=== PATIENT | female | born 1965 | race American Indian/Alaskan Native ===

== ENCOUNTER 2016-05-24 02:13 | Emergency (ER) | payer BC ==
[2016-05-24] MEDS ORDERED: BABY ASPIRIN PO ONE (02:50)
[2016-05-24 03:11] LABS: Basophils % (Auto) 1.2 % (0.0-1.8); Eosinophils % (Auto) 1.8 % (0.0-4.3); Hematocrit 37.1 % (30.3-42.9); Hemoglobin 11.9 gm/dl (10.1-14.3); Mean Corpuscular HGB Conc 32 % (30-34); Mean Corpuscular Volume 78 fl (79-97); Platelet Count 275 K/mm3 (140-440); Red Blood Count 4.76 M/mm3 (3.65-5.03); White Blood Count 6.2 K/mm3 (4.5-11.0)
[2016-05-24 03:27] LABS: Mean Corpuscular Hemoglobin 25 pg (28-32)
[2016-05-24 03:33] LABS: Anion Gap 15 mmol/L; BUN/Creatinine Ratio 14.44; Blood Urea Nitrogen 13 mg/dL (7-17); Calcium 8.9 mg/dL (8.4-10.2); Carbon Dioxide 27 mmol/L (22-30); Chloride 100.6 mmol/L (98-107); Glucose 90 mg/dL (65-100); Potassium 3.6 mmol/L (3.6-5.0); Sodium 139 mmol/L (137-145)
[2016-05-24] MEDS ORDERED: NORVASC PO ONE (06:15)
[2016-05-24] MEDS ORDERED: ZESTRIL PO ONE (06:15)
[2016-05-24] MEDS ORDERED: MOTRIN PO ONE (06:16)
--- NOTE | 2016-05-24 06:20 | Emergency Department Report ---
ED Chest Pain HPI - General Chief Complaint: Chest Pain Stated Complaint: CHEST PAIN Time Seen by Provider: 05/24/16 06:10 Source: patient Mode of arrival: Ambulatory Limitations: No Limitations - History of Present Illness Initial Comments: 50-year-old female presents to the emergency department complaining of chest pain. Patient reports the acute onset of sharp, midsternal chest pain at approximately 1:15 this morning. Pain does not radiate. She reports pain began when she lay down in bed. Initially she reported difficulty breathing mild nausea. These associated symptoms have resolved. Her pain has been constant since onset. Pain is worse with lying flat or movement. Patient also states that she ran out of her blood pressure medication yesterday. There are no other complaints. MD Complaint: chest pain -: Sudden, During the night Time: 01:15 Onset: during rest Pain Location: substernal Pain Radiation: none Severity: severe Severity scale (0 -10): 10 Quality: sharp Consistency: constant Improves With: nothing Worsens With: supine, palpation, movement re: nausea, dyspnea. denies: vomting, diaphoresis Treatments Prior to Arrival: none Aspirin use within the Past 7 Days: (0) No - Related Data Previous Rx's Medication Instructions Recorded Last Taken Type Ibuprofen [Motrin] 800 mg PO Q8HR PRN #20 tablet 05/24/16 Unknown Rx Lisinopril [Zestril TAB] 5 mg PO QDAY #30 tablet 05/24/16 Unknown Rx amLODIPine [Norvasc] 1 tab PO DAILY #30 tablet 05/24/16 Unknown Rx Allergies Allergy/AdvReac Type Severity Reaction Status Date / Time amoxicillin Allergy Hives Verified 05/24/16 02:47 STARR score - Starr Score Age > 65: (0) No Aspirin use within the Past 7 Days: (0) No 3 or more CAD Risk Factors: (1) Yes 2 or more Angina events in past 24 hrs: (0) No Known CAD with more than 50% Stenosis: (0) No Elevated Cardiac Markers: (0) No ST Deviation Greater than 0.5mm: (0) No STARR Score: 1 ED Review of Systems ROS: Stated complaint: CHEST PAIN Other details as noted in HPI Comment: All other systems reviewed and negative Respiratory: shortness of breath Cardiovascular: chest pain Gastrointestinal: nausea ED Past Medical Hx - Past Medical History Previous Medical History?: Yes Hx Hypertension: Yes Additional medical history: Morbid Obesity, Genital Herpes - Surgical History Past Surgical History?: Yes Additional Surgical History: - Family History Family history: no significant - Social History Smoking Status: Current Every Day Smoker - Medications Home Medications: Home Medications Medication Instructions Recorded Confirmed Last Taken Type Ibuprofen [Motrin] 800 mg PO Q8HR PRN #20 tablet 05/24/16 Unknown Rx Lisinopril [Zestril TAB] 5 mg PO QDAY #30 tablet 05/24/16 Unknown Rx amLODIPine [Norvasc] 1 tab PO DAILY #30 tablet 05/24/16 Unknown Rx ED Physical Exam - General Limitations: No Limitations General appearance: alert, in no apparent distress - Head Head exam: Present: atraumatic, normocephalic - Eye Eye exam: Present: normal appearance, PERRL, EOMI - ENT ENT exam: Present: normal exam, normal orophraynx, mucous membranes moist - Neck Neck exam: Present: normal inspection, full ROM. Absent: tenderness - Respiratory Respiratory exam: Present: normal lung sounds bilaterally, chest wall tenderness (exquisite tenderness to palpation of the anterior chest wall to the right of the sternum. No deformity or crepitus noted.). Absent: respiratory distress - Cardiovascular Cardiovascular Exam: Present: regular rate, normal rhythm, normal heart sounds - GI/Abdominal GI/Abdominal exam: Present: soft, normal bowel sounds. Absent: distended, tenderness - Extremities Exam Extremities exam: Present: normal inspection, full ROM. Absent: tenderness - Back Exam Back exam: Present: normal inspection, full ROM. Absent: tenderness - Neurological Exam Neurological exam: Present: alert, oriented X3. Absent: motor sensory deficit - Skin Skin exam: Present: warm, dry, intact ED Course Vital Signs 05/24/16 05/24/16 05/24/16 02:38 04:48 04:50 Temperature 98 F Pulse Rate 81 66 69 Respiratory 16 14 20 Rate Blood Pressure 214/103 142/76 Blood Pressure 214/103 [Left] O2 Sat by Pulse 99 98 Oximetry 05/24/16 05/24/16 05/24/16 04:54 04:55 04:56 Temperature Pulse Rate 69 73 Respiratory 20 13 Rate Blood Pressure 142/76 Blood Pressure [Left] O2 Sat by Pulse 100 97 Oximetry 05/24/16 05/24/16 05/24/16 05:00 05:06 05:10 Temperature Pulse Rate 65 64 64 Respiratory 15 16 16 Rate Blood Pressure 153/79 153/79 153/79 Blood Pressure [Left] O2 Sat by Pulse 99 99 99 Oximetry 05/24/16 05/24/16 05/24/16 05:15 05:20 05:26 Temperature Pulse Rate 68 66 67 Respiratory 13 14 19 Rate Blood Pressure 153/87 153/87 153/87 Blood Pressure [Left] O2 Sat by Pulse 96 99 97 Oximetry 05/24/16 05/24/16 05/24/16 05:30 05:36 05:40 Temperature Pulse Rate 80 71 65 Respiratory 16 16 16 Rate Blood Pressure 164/90 164/90 164/90 Blood Pressure [Left] O2 Sat by Pulse 97 98 99 Oximetry 05/24/16 05/24/16 05/24/16 05:45 05:50 06:30 Temperature Pulse Rate 70 68 70 Respiratory 15 15 Rate Blood Pressure 160/77 160/77 118/62 Blood Pressure [Left] O2 Sat by Pulse 96 97 Oximetry ED Medical Decision Making - Lab Data Result diagrams: 05/24/16 02:59 05/24/16 02:59 - EKG Data -: EKG Interpreted by Ct EKG shows normal: sinus rhythm, axis, intervals, QRS complexes Rate: normal - EKG Data When compared to previous EKG there are: previous EKG unavailable Interpretation: nonspecific ST-T wave vik - Medical Decision Making Lab results reviewed and discussed with the patient. Patient's blood pressure has partially improved with medication. She also reports her pain is improved with medication. Patient will be discharged home at this time to follow up with her primary care physician. Patient will be provided prescriptions for her antihypertension medication. - Differential Diagnosis chest wall pain, atypical chest pain, hypertension Critical care attestation.: If time is entered above; I have spent that time in minutes in the direct care of this critically ill patient, excluding procedure time. ED Disposition Clinical Impression: Chest wall pain Hypertension Qualifiers: Hypertension type: essential hypertension Qualified Code(s): I10 - Essential ( primary) hypertension Disposition: DISCHARGED TO HOME OR SELFCARE Is pt being admited?: No Condition: Stable Instructions: Chest Pain (ED), Hypertension (ED) Prescriptions: amLODIPine [Norvasc] 1 tab PO DAILY #30 tablet Ibuprofen [Motrin] 800 mg PO Q8HR PRN #20 tablet PRN Reason: Pain Lisinopril [Zestril TAB] 5 mg PO QDAY #30 tablet Referrals: PRIMARY CARE, [Primary Care Provider] - 3-5 Days Time of Disposition: 07:17
[2016-05-24 07:19] VITALS: BP 142/76
== END 2016-05-24 07:22 | disposition home or self-care (01) ==
LOC: ED 02:13
DX: R07.89 Other chest pain (principal); I10 Essential (primary) hypertension; F17.200 Nicotine dependence, unspecified, uncomplicated
CPT/HCPCS: 36415; 80048; 84484; 85025; 93005; 93010; 99284

== ENCOUNTER 2017-03-24 14:56 | Emergency (ER) | payer BC ==
--- NOTE | 2017-03-24 19:20 | Emergency Department Report ---
Minor Respiratory - HPI Chief Complaint: Upper Respiratory Infection Stated Complaint: COLD SYMPTOMS/COUGH Time Seen by Provider: 03/24/17 19:17 ED Review of Systems ROS: Stated complaint: COLD SYMPTOMS/COUGH Other details as noted in HPI ED Past Medical Hx - Past Medical History Hx Hypertension: Yes Additional medical history: Morbid Obesity, Genital Herpes - Surgical History Additional Surgical History: - Social History Smoking Status: Current Every Day Smoker - Medications Home Medications: Home Medications Medication Instructions Recorded Confirmed Last Taken Type Ibuprofen [Motrin] 800 mg PO Q8HR PRN #20 tablet 05/24/16 Unknown Rx Lisinopril [Zestril TAB] 5 mg PO QDAY #30 tablet 05/24/16 Unknown Rx amLODIPine [Norvasc] 1 tab PO DAILY #30 tablet 05/24/16 Unknown Rx Minor Respiratory Exam - Exam General: Vital signs noted. No distress. Alert and acting appropriately. Neurologic: Alert and oriented, no deficits. Musculoskeletal: Unremarkable. ED Course Vital Signs 03/24/17 15:16 Temperature 98.9 F Pulse Rate 96 H Respiratory 18 Rate Blood Pressure 155/85 O2 Sat by Pulse 95 Oximetry Critical care attestation.: If time is entered above; I have spent that time in minutes in the direct care of this critically ill patient, excluding procedure time. ED Disposition Condition: Stable Referrals: PRIMARY CARE, [Primary Care Provider] - 3-5 Days
[2017-03-24] MEDS ORDERED: DELTASONE PO ONE (19:29)
[2017-03-24] MEDS ORDERED: DUONEB *Not for PRN Use IH ONE (19:29)
--- NOTE | 2017-03-24 21:29 | XRay Report ---
FINAL REPORT EXAM: XR CHEST ROUTINE 2V HISTORY: cough and wheezing TECHNIQUE: Two views of the chest Comparison: None FINDINGS: Normal heart size. There are mild hypoventilatory changes in both bases. On the lateral projection, there is ill-defined density projecting over the lower lobes which is not appreciated on the PA projection. This may be due to summation artifact or an infiltrate lower than visualized on the frontal film. IMPRESSION: Mild hypoventilatory changes. Ill-defined opacity projects over the lower lobe on the lateral projection which may be partly due to patient body habitus and summation artifact. No effusion.
[2017-03-24 23:50] LABS: Hematocrit 38.8 % (30.3-42.9); Hemoglobin 12.4 gm/dl (10.1-14.3); Mean Corpuscular HGB Conc 32 % (30-34); Mean Corpuscular Volume 79 fl (79-97); Platelet Count 286 K/mm3 (140-440); Red Blood Count 4.92 M/mm3 (3.65-5.03); Red Cell Distribution Width 14.4 % (13.2-15.2)
[2017-03-24 23:51] LABS: Mean Corpuscular Hemoglobin 25 pg (28-32)
[2017-03-25 00:08] LABS: BUN/Creatinine Ratio 10; Blood Urea Nitrogen 9 mg/dL (7-17); Hemolysis Index 5
[2017-03-25] MEDS ORDERED: LEVAQUIN PO ONE (00:40)
[2017-03-25 00:55] LABS: Basophils % (Manual) 0 % (0.0-1.8); Eosinophils % (Manual) 0 % (0.0-4.3); Hypochromasia 1+; Platelet Estimate Consistent w Auto; Total Cells Counted 100
--- NOTE | 2017-03-25 01:18 | Emergency Department Report ---
HPI - General Chief Complaint: Upper Respiratory Infection Time Seen by Provider: 03/24/17 19:17 - HPI HPI: Patient airport cough, cold and congestion since Saturday. She says she is having coughing of yellow phlegm. Denies any fever, nausea or vomiting. Denies any shortness of breath or chest pain. Report nasal congestion and runny nose. Denies any abdominal or back pain. Denies any urinary burning frequency or urgency. She says she is able to tolerate fluid but not as much as she used to. Denies any vomiting or diarrhea. Patient has a history of high blood pressure, genital herpes and morbid obesity. Denies any coughing of blood. She says she's been taking [id number] medication without any relief. ED Past Medical Hx - Past Medical History Previous Medical History?: Yes Hx Hypertension: Yes Additional medical history: Morbid Obesity, Genital Herpes - Surgical History Past Surgical History?: Yes Additional Surgical History: - Family History Family history: hypertension - Social History Smoking Status: Current Every Day Smoker Substance Use Type: None - Medications Home Medications: Home Medications Medication Instructions Recorded Confirmed Last Taken Type Ibuprofen [Motrin] 800 mg PO Q8HR PRN #20 tablet 05/24/16 Unknown Rx Lisinopril [Zestril TAB] 5 mg PO QDAY #30 tablet 05/24/16 Unknown Rx amLODIPine [Norvasc] 1 tab PO DAILY #30 tablet 05/24/16 Unknown Rx ALBUTEROL Inhaler [ProAir HFA 2 puff IH QID PRN #1 inhalation 03/25/17 Unknown Rx Inhaler] Cetirizine HCl [ZyrTEC] 10 mg PO QDAY #10 capsule 03/25/17 Unknown Rx Fluticasone [Flonase] 1 spray NS QDAY 10 Days #1 bottle 03/25/17 Unknown Rx Ibuprofen [Motrin] 600 mg PO Q6H PRN #12 tablet 03/25/17 Unknown Rx Levofloxacin [Levaquin] 750 mg PO QDAY 9 Days #9 tablet 03/25/17 Unknown Rx ED Review of Systems ROS: Stated complaint: COLD SYMPTOMS/COUGH Other details as noted in HPI Comment: All other systems reviewed and negative Constitutional: weakness. denies: chills, fever Eyes: denies: eye pain, eye discharge ENT: congestion. denies: ear pain, throat pain, dental pain, hearing loss, epistaxis Respiratory: cough. denies: orthopnea, shortness of breath, SOB with exertion, SOB at rest, stridor, wheezing Cardiovascular: denies: chest pain, palpitations, dyspnea on exertion, edema, syncope, paroxysmal nocturnal dyspnea Gastrointestinal: denies: abdominal pain, nausea, vomiting, diarrhea, constipation, hematemesis, melena, hematochezia Genitourinary: denies: urgency, dysuria, frequency, hematuria, discharge Musculoskeletal: denies: back pain, joint swelling, arthralgia, myalgia Skin: denies: rash Neurological: denies: headache, weakness, numbness, paresthesias, confusion, abnormal gait, vertigo Physical Exam - Physical Exam Vital Signs: Vital Signs 03/24/17 15:16 Temperature 98.9 F Pulse Rate 96 H Respiratory 18 Rate Blood Pressure 155/85 O2 Sat by Pulse 95 Oximetry Vital Signs 03/24/17 03/25/17 15:16 01:21 Temperature 98.9 F 99.5 F Pulse Rate 96 H 89 Respiratory 18 16 Rate Blood Pressure 155/85 Blood Pressure 162/84 [Left] O2 Sat by Pulse 95 96 Oximetry General: This is a 51-year-old female well-nourished well-developed in no acute distress and nontoxic in appearance Physical Exam: Head: Normocephalic, atraumatic, no abrasion, no bruising and no contusion. Eyes: Biateral pupils equal and reactive to light, bilateral EOM intact.. Bilateral conjunctival and sclera without injection, normal accommodation. No nystagmus Mouth: Moist, no pharyngeal exudate or erythema. No peritonsillar abscesses. Uvula is midline and oral airways patent. Ears: TM congested without erythema. Bilateral EAC without any redness swelling or drainage. No mastoid bone tenderness Nose: Bilateral nasal turbinates congested with erythema and clear drainage. Maxillary and frontal sinuses non-tender to palpate. Neck: Supple, No Cervical adenopathy, full range of motion and no C-spine tenderness. No swelling or tracheal deviation normal reflexes Cardiovascular: S1, S2. Regular rate and rhythm. No murmur. Capillary refill is less then 3 seconds. Lungs: No rhonchi, or rales. Scant wheeze Upper lung crawford .No chest wall tenderness. No chest contusion. No bruising to chest. No use of accessory muscles. Dry cough MSK: Strength 5/5 in all extremities. No joint deformity or crepitus. Normal inspection. Full range of motion to all extremities. No laceration, abrasion or ecchymotic area noted. Ambulates without any difficulties Abdomen: N bilateral on-tender to palpate in all quadrants, no guarding or rebound tenderness, positive bowel sounds in all quadrants. No CVA tenderness. No hernia, bruit or mass. No rigidity or distention. Extremities: No clubbing, cyanosis or edema. +2 pulses. No neurovascular compromise Skin: Clean, dry and intact. No rash or lesions. Psych: Normal mood and behavior ED Course Vital Signs 03/24/17 15:16 Temperature 98.9 F Pulse Rate 96 H Respiratory 18 Rate Blood Pressure 155/85 O2 Sat by Pulse 95 Oximetry Vital Signs 03/24/17 03/25/17 15:16 01:21 Temperature 98.9 F 99.5 F Pulse Rate 96 H 89 Respiratory 18 16 Rate Blood Pressure 155/85 Blood Pressure 162/84 [Left] O2 Sat by Pulse 95 96 Oximetry - Reevaluation(s) Reevaluation #1: 03/25/17 01:18 Patient received DuoNeb 1 treatment in emergency room. She also receive Deltasone 60 mg by mouth, Upon reevaluation her lung sounds are clear. ED Medical Decision Making - Lab Data Result diagrams: 03/24/17 23:37 03/24/17 23:37 Lab Results 03/24/17 03/24/17 Range/Units 23:37 23:37 WBC 7.4 (4.5-11.0) K/mm3 RBC 4.92 (3.65-5.03) M/mm3 Hgb 12.4 (10.1-14.3) gm/dl Hct 38.8 (30.3-42.9) % MCV 79 (79-97) fl MCH 25 L (28-32) pg MCHC 32 (30-34) % RDW 14.4 (13.2-15.2) % Plt Count 286 (140-440) K/mm3 Add Manual Diff Complete Total Counted 100 Seg Neutrophils % Custom Miller Seg Neuts % (Manual) 95.0 H (40.0-70.0) % Band Neutrophils % 0 % Lymphocytes % (Manual) 3.0 L (13.4-35.0) % Reactive Lymphs % (Man) 0 % Monocytes % (Manual) 2.0 (0.0-7.3) % Eosinophils % (Manual) 0 (0.0-4.3) % Basophils % (Manual) 0 (0.0-1.8) % Metamyelocytes % 0 % Myelocytes % 0 % Promyelocytes % 0 % Blast Cells % 0 % Nucleated RBC % Not Reportable Seg Neutrophils # Man 7.0 (1.8-7.7) K/mm3 Band Neutrophils # 0.0 K/mm3 Lymphocytes # (Manual) 0.2 L (1.2-5.4) K/mm3 Abs React Lymphs (Man) 0.0 K/mm3 Monocytes # (Manual) 0.1 (0.0-0.8) K/mm3 Eosinophils # (Manual) 0.0 (0.0-0.4) K/mm3 Basophils # (Manual) 0.0 (0.0-0.1) K/mm3 Metamyelocytes # 0.0 K/mm3 Myelocytes # 0.0 K/mm3 Promyelocytes # 0.0 K/mm3 Blast Cells # 0.0 K/mm3 WBC Morphology Not Reportable Hypersegmented Neuts Not Reportable Hyposegmented Neuts Not Reportable Hypogranular Neuts Not Reportable Smudge Cells Not Reportable Toxic Granulation Not Reportable Toxic Vacuolation Not Reportable Dohle Bodies Not Reportable Pelger-Huet Anomaly Not Reportable [place] Rods Not Reportable Platelet Estimate Consistent w auto Clumped Platelets Not Reportable Plt Clumps, EDTA Not Reportable Large Platelets Not Reportable Giant Platelets Not Reportable Platelet Satelliting Not Reportable Plt Morphology Comment Not Reportable RBC Morphology Not Reportable Dimorphic RBCs Not Reportable Polychromasia Not Reportable Hypochromasia 1+ Poikilocytosis Not Reportable Anisocytosis Not Reportable Microcytosis Not Reportable Macrocytosis Not Reportable Spherocytes Not Reportable Pappenheimer Bodies Not Reportable Sickle Cells Not Reportable Target Cells Not Reportable Tear Drop Cells Not Reportable Ovalocytes Not Reportable Helmet Cells Not Reportable [place] Bodies Not Reportable [place] Rings Not Reportable [place] Cells Not Reportable Bite Cells Not Reportable Crenated Cell Not Reportable Elliptocytes Not Reportable Acanthocytes (Spur) Not Reportable Rouleaux Not Reportable Hemoglobin C Crystals Not Reportable Schistocytes Not Reportable Malaria parasites Not Reportable [place] Bodies Not Reportable Hem Pathologist Commnt No Sodium 138 (137-145) mmol/L Potassium 3.8 (3.6-5.0) mmol/L Chloride 97.2 L (98-107) mmol/L Carbon Dioxide 25 (22-30) mmol/L Anion Gap 20 mmol/L BUN 9 (7-17) mg/dL Creatinine 0.9 (0.7-1.2) mg/dL Estimated GFR > 60 ml/min BUN/Creatinine Ratio 10 % Glucose 155 H (65-100) mg/dL Calcium 9.0 (8.4-10.2) mg/dL Blood culture pending - Radiology Data Radiology results: report reviewed Chest x-ray reveals patient with mild hypoventilatory changes in both bases. Ill-defined opacity projects over the lower lobe on the lateral projection which may be partly due to patient body habitus and summation of artifact. No effusion. Radiology report suggested that lower lobe on PA may be due to summation of artifact or an infiltrate lower then visualized on the frontal family - Medical Decision Making I spoke with attending physician in emergency room regarding patient's presentation, laboratory and x-ray findings and it was agreed on that patient can be discharged home on Levaquin to get her first dose here with close follow- up. ED course: Patient here with cough and congestion mostly in her lungs and some nasal congestion and runny nose that been going on for over 3 days. Patient's vital signs stable except she had oxygen level at 95%. She did not have any chest pain or shortness of breath. She has dry cough. Patient found to have upper respiratory infection with cough and congestion and also chest x-ray read the patient's with probability of infiltrate in the lower lobe of the lung with mild high pole ventilatory changes and also suggest that infiltrate is probably lower than visualized on the frontal family. They could not rule out pneumonia. Based on patient's symptoms, low oxygenation of 95% on room air and low grade fever patient will be treated for community-acquired pneumonia. Patient updated on all her lab results and x-ray findings. CBC with normal white count and no significant abnormalities, BMP stable. Blood cultures are pending. Patient received DuoNeb 1 treatments her vital signs are stable and pulse ox is 96% with low-grade fever of 99.5. Patient stated that she feel better and she was orally hydrated in emergency room. She was given Motrin prior to discharge along with Levaquin by mouth to cover pneumonia and low- grade fever. Patient does have access to primary care doctor I told her to call tomorrow to schedule appointment for follow-up visit in 2 days and if she feels worse before she sees her primary care to return to the emergency room. She was undescended diagnosis, treatment plan and need for follow-up. Patient discharged home a prescription for albuterol inhaler, Motrin to cover fever and Levaquin to cover pneumonia. Critical care attestation.: If time is entered above; I have spent that time in minutes in the direct care of this critically ill patient, excluding procedure time. ED Disposition Clinical Impression: Upper respiratory infection with cough and congestion Community acquired pneumonia Qualifiers: Laterality: right Lung location: lower lobe of lung Qualified Code(s): J18.1 - Lobar pneumonia, unspecified organism Disposition: TO HOME OR SELFCARE Is pt being admited?: No Does the pt Need Aspirin: No Condition: Stable Instructions: Community-acquired Pneumonia (ED), Upper Respiratory Infection ( ED), Acute Cough (ED) Additional Instructions: Please follow up with your primary care physician in 2 days Please state medication as prescribed he received her first dose of Levaquin in the emergency room tonight and will be prescribed Levaquin for 9 days. Increaseyour fluid intake today 3 L of water, Gatorade and/or orange juice. Rest for 72 hours Takes Zyrtec and Flonase Please take Motrin every 4-6 hours for the next 48 hours for fever and/or pain. Prescriptions: ALBUTEROL Inhaler [ProAir HFA Inhaler] 2 puff IH QID PRN #1 inhalation PRN Reason: COUGH/WHEEZING Cetirizine HCl [ZyrTEC] 10 mg PO QDAY #10 capsule Fluticasone [Flonase] 1 spray NS QDAY 10 Days #1 bottle Ibuprofen [Motrin] 600 mg PO Q6H PRN #12 tablet PRN Reason: Pain/Fever Levofloxacin [Levaquin] 750 mg PO QDAY 9 Days #9 tablet Referrals: PRIMARY CARE, [Primary Care Provider] - 03/26/17 Forms: Accompanied Note, Work/School Release Form(ED)
[2017-03-25 01:23] VITALS: BP 162/84
[2017-03-25] MEDS ORDERED: MOTRIN PO ONE (01:27)
== END 2017-03-25 01:39 | disposition home or self-care (01) ==
LOC: ED 14:56
DX: J18.1 Lobar pneumonia, unspecified organism (principal); J06.9 Acute upper respiratory infection, unspecified; I10 Essential (primary) hypertension; F17.200 Nicotine dependence, unspecified, uncomplicated; E66.01 Morbid (severe) obesity due to excess calories
CPT/HCPCS: 36415; 71046; 80048; 85007; 85025; 87040; 87400; 94640; 99284; J7512

== ENCOUNTER 2019-01-04 01:11 | Observation (INO) | payer BC, OTHER ==
--- NOTE | 2019-01-04 01:44 | Cat Scan Report ---
CT head/brain wo con INDICATION: MAIN: HEADACHE, RT SIDED [place]INGL[place]. [phone]. TECHNIQUE: All CT scans at this location are performed using the following dose modulation technique: Automated exposure control. CONTRAST: None. COMPARISON: None available. FINDINGS: The ventricular system is appropriate in size and configuration without midline shift. Nega tive for mass, stroke or hemorrhage. The bones and imaged portions of the paranasal sinuses are unremarkable. IMPRESSION: Negative CT brain. Code stroke: Called to Dr. Douglas in the emergency room at 12:36 AM. Signer Name: Neil Stiles MD Signed: 01/04/2019 1:40 AM Workstation Name: [id number]
[2019-01-04] MEDS ORDERED: METOCLOPRAMIDE 10 MG/2 ML INJ IV ONE (01:46)
[2019-01-04] MEDS ORDERED: KETOROLAC 30 MG/1 ML INJ IV ONE (01:46)
[2019-01-04] MEDS ORDERED: diphenhydrAMINE 50 MG/ML VIAL IV ONE (01:47)
[2019-01-04] MEDS ORDERED: SODIUM CHLORIDE 0.9% 1000 ML 1,000 ML IV ONE (01:47)
[2019-01-04] MEDS ORDERED: dexAMETHasone 20 MG/5 ML VIAL IV ONE (01:47)
--- NOTE | 2019-01-04 01:51 | Emergency Department Report ---
ED Neuro Deficit HPI - General Chief Complaint: Headache Stated Complaint: RT SIDE NUMBNESS, HEADACHES Time Seen by Provider: 01/04/19 01:37 Source: patient Mode of arrival: Ambulatory Limitations: No Limitations - History of Present Illness Initial Comments: 53-year-old female with history of hypertension, chronic headaches presents to ED with headache and right-sided numbness. Patient states she has had a headache for the last 3 days. Patient states pain has been occipital. States the pain was typical of her usual headaches, however became worse approximately 2 hours ago with associated pain and numbness to her right arm and leg. Patient denies any extremity weakness. Denies any facial droop or difficulty with speech. She states the numbness in her right leg has resolved, still has tingling in the right arm. Patient states she has not taken anything for pain. Patient states she has also felt off balance over the last 3 days. Denies any falls. Reports history of hypertension, has not been on any antihypertensives for the last month. -: days(s) (3) Location: right face, right arm, right leg Severity: moderate Quality: numb, tingling, improving Improves With: none Worsens With: none On Anticoagulants: No Associated Symptoms: headaches, nausea/vomiting, vertigo. denies: chest pain, fever/chills - Related Data Home Medications: Home Medications Medication Instructions Recorded Confirmed Last Taken hydroCHLOROthiazide [HCTZ] 25 mg PO QDAY 01/04/19 01/04/19 Unknown Previous Rx's Medication Instructions Recorded Last Taken Type Ibuprofen [Motrin] 800 mg PO Q8HR PRN #20 tablet 05/24/16 Unknown Rx Lisinopril [Zestril TAB] 5 mg PO QDAY #30 tablet 05/24/16 Unknown Rx amLODIPine 1 tab PO DAILY #30 tablet 05/24/16 Unknown Rx ALBUTEROL Inhaler (OR & NICU) 2 puff IH QID PRN #1 inhalation 03/25/17 Unknown Rx [ProAir HFA Inhaler] Cetirizine HCl [ZyrTEC] 10 mg PO QDAY #10 capsule 03/25/17 Unknown Rx Fluticasone [Flonase] 1 spray NS QDAY 10 Days #1 bottle 03/25/17 Unknown Rx Ibuprofen [Motrin] 600 mg PO Q6H PRN #12 tablet 02/05/18 Unknown Rx levoFLOXacin [Levaquin] 750 mg PO QDAY 9 Days #9 tablet 03/25/17 Unknown Rx Allergies/Adverse Reactions: Allergies Allergy/AdvReac Type Severity Reaction Status Date / Time amoxicillin Allergy Hives Verified 01/04/19 01:18 ED Review of Systems ROS: Stated complaint: RT SIDE NUMBNESS, HEADACHES Other details as noted in HPI Comment: All other systems reviewed and negative Constitutional: denies: fever Gastrointestinal: nausea, vomiting Neurological: headache, numbness, paresthesias. denies: weakness ED Past Medical Hx - Past Medical History Previous Medical History?: Yes Hx Hypertension: Yes Additional medical history: Morbid Obesity, Genital Herpes - Surgical History Past Surgical History?: Yes Additional Surgical History: , kidney, gall stones removed, - Social History Smoking Status: Current Every Day Smoker Substance Use Type: None - Medications Home Medications: Home Medications Medication Instructions Recorded Confirmed Last Taken Type Ibuprofen [Motrin] 800 mg PO Q8HR PRN #20 tablet 05/24/16 Unknown Rx Lisinopril [Zestril TAB] 5 mg PO QDAY #30 tablet 05/24/16 Unknown Rx amLODIPine 1 tab PO DAILY #30 tablet 05/24/16 Unknown Rx ALBUTEROL Inhaler (OR & NICU) 2 puff IH QID PRN #1 inhalation 03/25/17 Unknown Rx [ProAir HFA Inhaler] Cetirizine HCl [ZyrTEC] 10 mg PO QDAY #10 capsule 03/25/17 Unknown Rx Fluticasone [Flonase] 1 spray NS QDAY 10 Days #1 bottle 03/25/17 Unknown Rx Ibuprofen [Motrin] 600 mg PO Q6H PRN #12 tablet 03/25/17 Unknown Rx levoFLOXacin [Levaquin] 750 mg PO QDAY 9 Days #9 tablet 03/25/17 Unknown Rx hydroCHLOROthiazide [HCTZ] 25 mg PO QDAY 01/04/19 01/04/19 Unknown History ED Neuro Physical Exam - General Limitations: No Limitations General appearance: alert, in no apparent distress, obese Suspected Stroke: Yes - Head Head exam: Present: atraumatic, normocephalic - Eye Eye exam: Present: normal appearance, PERRL, EOMI - ENT ENT exam: Present: mucous membranes moist - Neck Neck exam: Present: normal inspection, full ROM. Absent: meningismus - Respiratory Respiratory exam: Present: normal lung sounds bilaterally. Absent: respiratory distress - Cardiovascular Cardiovascular Exam: Present: regular rate, normal rhythm - GI/Abdominal GI/Abdominal exam: Present: soft. Absent: distended, tenderness - Extremities Exam Extremities exam: Present: normal inspection - Neurological Exam Neurological exam: Present: alert, oriented X3, normal gait - NIHSS Assessment Interval: Baseline 1a. Level of Consciousness: alert/keenly responsive 1b. LOC Questions: answers both correctly 1c. LOC Commands: performs tasks correctly 2. Best Gaze: normal 3. Visual: no visual loss 4. Facial Palsy: normal symmetrical movement 5b. Motor Arm Right: no drift 5a. Motor Arm Left: no drift 6a. Motor Leg Left: drift 6b. Motor Leg Right: drift 7. Limb Ataxia: absent 8. Sensory: mild/moderate sensory loss 9. Best Language: no aphasia 10. Dysarthria: normal 11. Extinction/Inattention: no abnormality Total Score: 3 Stroke Severity: Minor Stroke - Psychiatric Psychiatric exam: Present: normal affect, normal mood - Skin Skin exam: Present: warm, dry, intact, normal color ED Course Vital Signs 01/04/19 01/04/19 01/04/19 01:18 01:30 01:46 Temperature 97.9 F 98.5 F Pulse Rate 81 79 77 Respiratory 18 18 20 Rate Blood Pressure 187/93 156/91 Blood Pressure [Left] O2 Sat by Pulse 97 100 Oximetry 01/04/19 01/04/19 01/04/19 01:49 01:50 02:00 Temperature Pulse Rate 77 83 Respiratory 18 18 18 Rate Blood Pressure 189/97 Blood Pressure 189/97 [Left] O2 Sat by Pulse 100 100 Oximetry 01/04/19 01/04/19 01/04/19 02:15 02:30 02:45 Temperature Pulse Rate 82 77 Respiratory 18 20 Rate Blood Pressure 156/102 163/89 Blood Pressure 151/61 [Left] O2 Sat by Pulse 100 100 Oximetry 01/04/19 01/04/19 01/04/19 02:51 03:00 03:11 Temperature Pulse Rate 72 Respiratory 18 Rate Blood Pressure 163/89 147/90 147/90 Blood Pressure 147/90 [Left] O2 Sat by Pulse 98 99 99 Oximetry 01/04/19 01/04/19 01/04/19 03:21 03:30 03:41 Temperature 98.6 F Pulse Rate 70 Respiratory 18 Rate Blood Pressure 151/85 170/100 170/100 Blood Pressure 154/62 [Left] O2 Sat by Pulse 100 100 99 Oximetry 01/04/19 01/04/19 01/04/19 03:51 05:30 05:41 Temperature Pulse Rate 75 Respiratory 18 Rate Blood Pressure 157/97 137/89 Blood Pressure 137/62 [Left] O2 Sat by Pulse 97 100 92 Oximetry 01/04/19 01/04/19 05:51 06:00 Temperature Pulse Rate Respiratory Rate Blood Pressure 157/97 165/89 Blood Pressure [Left] O2 Sat by Pulse 96 94 Oximetry - Reevaluation(s) Reevaluation #1: 01/04/19 03:04 Pain meds given. Pt reports improvement of JAY pain from a 10 to a 3 currently. Also states numbness in right arm has improved significantly. - Consultations Consultation #1: 01/04/19 01:50 Spoke w/ teleneurologist. Pt not a tPA candidate. Wants CTA Head and Neck. - Lab Data Result diagrams: 01/04/19 01:30 01/04/19 01:30 Lab Results 01/04/19 01/04/19 01/04/19 Range/Units 01:30 01:30 01:30 WBC 6.6 (4.5-11.0) K/mm3 RBC 4.76 (3.65-5.03) M/mm3 Hgb 12.5 (10.1-14.3) gm/dl Hct 38.8 (30.3-42.9) % MCV 82 (79-97) fl MCH 26 L (28-32) pg MCHC 32 (30-34) % RDW 15.0 (13.2-15.2) % Plt Count 250 (140-440) K/mm3 Lymph % (Auto) 41.9 H (13.4-35.0) % [place] % (Auto) 7.0 (0.0-7.3) % Eos % (Auto) 1.6 (0.0-4.3) % Baso % (Auto) 0.6 (0.0-1.8) % Lymph # 2.8 (1.2-5.4) K/mm3 [place] # 0.5 (0.0-0.8) K/mm3 Eos # 0.1 (0.0-0.4) K/mm3 Baso # 0.0 (0.0-0.1) K/mm3 Seg Neutrophils % 48.9 (40.0-70.0) % Seg Neutrophils # 3.2 (1.8-7.7) K/mm3 PT 12.5 (12.2-14.9) Sec. INR 0.94 (0.87-1.13) APTT 30.4 (24.2-36.6) Sec. Thrombin Time 16.1 (15.1-19.6) Sec. Sodium 141 (137-145) mmol/L Potassium 3.9 (3.6-5.0) mmol/L Chloride 102.9 (98-107) mmol/L Carbon Dioxide 25 (22-30) mmol/L Anion Gap 17 mmol/L BUN 12 (7-17) mg/dL Creatinine 1.1 (0.7-1.2) mg/dL Estimated GFR > 60 ml/min BUN/Creatinine Ratio 11 % Glucose 95 (65-100) mg/dL Calcium 9.2 (8.4-10.2) mg/dL Troponin T < 0.010 (0.00-0.029) ng/mL - EKG Data -: EKG Interpreted by Me EKG shows normal: sinus rhythm, axis, intervals, QRS complexes, ST-T waves Rate: normal Interpretation: no acute changes - Radiology Data Radiology results: report reviewed, image reviewed - Medical Decision Making 53-year-old female with history of chronic headaches presents to ED with complaint of headache and right-sided numbness and tingling. Patient reports headache has been ongoing for the last 3 days, but she did not take anything for pain at home. Patient reports associated nausea, vomiting, and unsteady gait. Patient reported to neurologist that she has had multiple falls, however, she reports to me that she has not fallen, only feels unsteady on her feet. For this reason her last known well time is 3 days ago, not a tPA candidate. Ml ent reports onset of right arm and leg numbness and tingling tonight, which has mostly resolved, along with her headache after receiving migraine cocktail. CT head negative for any acute abnormality. Patient will be admitted by the hospitalist at the recommendation of the teleneurologist for a stroke workup. - Differential Diagnosis CVA, complex migraine, intracranial bleed Critical care attestation.: If time is entered above; I have spent that time in minutes in the direct care of this critically ill patient, excluding procedure time. ED Disposition Clinical Impression: Headache, Numbness and tingling Disposition: OP ADMIT IP TO THIS HOSP Is pt being admited?: Yes Condition: Stable
[2019-01-04 01:52] LABS: Basophils % (Auto) 0.6 % (0.0-1.8); Eosinophils # (Auto) 0.1 K/mm3 (0.0-0.4); Eosinophils % (Auto) 1.6 % (0.0-4.3); Hematocrit 38.8 % (30.3-42.9); Hemoglobin 12.5 gm/dl (10.1-14.3); Lymphocytes # (Auto) 2.8 K/mm3 (1.2-5.4); Lymphocytes % (Auto) 41.9 % (13.4-35.0); Mean Corpuscular HGB Conc 32 % (30-34); Mean Corpuscular Volume 82 fl (79-97); Monocytes # (Auto) 0.5 K/mm3 (0.0-0.8); Platelet Count 250 K/mm3 (140-440); Red Blood Count 4.76 M/mm3 (3.65-5.03)
--- NOTE | 2019-01-04 02:18 | Emergency Department Report ---
ED Headache HPI - General Chief Complaint: Headache Stated Complaint: RT SIDE NUMBNESS, HEADACHES Time Seen by Provider: 01/04/19 01:37 - History of Present Illness Initial Comments: [facility] Date of Service: 01/04/2019 01:31:38 Impression: RO Acute Ischemic Stroke Comments: PT has been having falls over the past two days, who also has headache over the last few days. CT head is negative, numbness started in right side two days prior. Mechanism of Stroke: Possible Thromboembolic Metrics: Last Known Well: 01/02/2019 01:00:00 [employer] Notification Time: 01/04/2019 01:30:58 Arrival Time: 01/04/2019 01:30:00 Stamp Time: 01/04/2019 01:31:38 Time First Login Attempt: 01/04/2019 01:34:00 Video Start Time: 01/04/2019 01:34:00 Symptoms: Headache, severe headache NIHSS Start Assessment Time: 01/04/2019 01:44:10 Patient is not a candidate for tPA. Patient was not deemed candidate for tPA thrombolytics because of Last Well Known Above 4.5 Hours. Video End Time: 01/04/2019 02:01:09 CT head showed no acute hemorrhage or acute core infarct. Advanced imaging CTA head and neck obtained. Advanced imaging CTP obtained. ER Physician notified of the decision on thrombolytics management on 01/04/2019 01:50:04 Our recommendations are outlined below. Recommendations: Activate Stroke Protocol Admission/Order Set Stroke/Telemetry Floor Neuro Checks Bedside Swallow Eval DVT Prophylaxis IV Fluids, Normal Saline Head of Bed Below 30 Degrees Euglycemia and Avoid Hyperthermia (PRN Acetaminophen) Antiplatelet Therapy Recommended Recommended Scan: MRI Head with and Without Contrast Lipid Panel to Be Obtained, if Not Done in the Last Three Months Therapies: Physical Therapy, Occupational Therapy, Speech Therapy Assessment When Applicable Dysphaghia Screen: Swallow Evaluation, Bedside DVT prophylaxis: Choice of Primary Team Disposition: Sign Out Sign Out: Discussed with Emergency Department Provider History of Present Illness: Patient is a 53 year old Female. Patient was brought by EMS for symptoms of Headache, severe headache The patient started having a headache with numbness and tingling to the right eye, since two days. She has had a fever, and she has been feeling off for the last two days. The last time she felt normal was . She has not been able to stand long periods of time and has been falling. She has felt light headed about one hour ago. CT head showed no acute hemorrhage or acute core infarct. Last seen normal was beyond 4.5 hours of presentation. There is no history of hemorrhagic complications or intracranial hemorrhage. There is no history of Recent Anticoagulants. There is no history of recent major surgery. There is no history of recent stroke. Examination: 1A: Level of Consciousness - Alert; keenly responsive + 0 1B: Ask Month and Age - Both Questions Right + 0 1C: Blink Eyes & Squeeze Hands - Performs Both Tasks + 0 2: Test Horizontal Extraocular Movements - Normal + 0 3: Test Visual Gard[place] - No Visual Loss + 0 4: Test Facial Palsy (Use Grimace if Obtunded) - Normal symmetry + 0 5A: Test Left Arm Motor Drift - No Drift for 10 Seconds + 0 5B: Test Right Arm Motor Drift - Drift, hits bed + 2 6A: Test Left Leg Motor Drift - No Drift for 5 Seconds + 0 6B: Test Right Leg Motor Drift - Drift, but doesn't hit bed + 1 7: Test Limb Ataxia (FNF/Heel-Hassan) - No Ataxia + 0 8: Test Sensation - Mild-Moderate Loss: Can Sense Being Touched + 1 9: Test Language/Aphasia - Normal; No aphasia + 0 10: Test Dysarthria - Normal + 0 11: Test Extinction/Inattention - No abnormality + 0 NIHSS Score: 4 Patient was informed the Neurology Consult would happen via TeleHealth consult by way of interactive audio and video telecommunications and consented to receiving care in this manner. Due to the immediate potential for life-threatening deterioration due to underlying acute neurologic illness, I spent 35 minutes providing critical care. This time includes time for face to face visit via telemedicine, review of medical records, imaging studies and discussion of findings with providers, the patient and/or family. Dr Clinton [facility] Allergies/Adverse Reactions: Allergies amoxicillin Allergy (Verified 01/04/19 01:18) Hives Home Medications: Ambulatory Orders Ibuprofen [Motrin] 800 mg PO Q8HR PRN #20 tablet 05/24/16 Lisinopril [Zestril TAB] 5 mg PO QDAY #30 tablet 05/24/16 amLODIPine 1 tab PO DAILY #30 tablet 05/24/16 ALBUTEROL Inhaler (OR & NICU) [ProAir HFA Inhaler] 2 puff IH QID PRN #1 inhalation 03/25/17 Cetirizine HCl [ZyrTEC] 10 mg PO QDAY #10 capsule 03/25/17 Fluticasone [Flonase] 1 spray NS QDAY 10 Days #1 bottle 03/25/17 Ibuprofen [Motrin] 600 mg PO Q6H PRN #12 tablet 03/25/17 levoFLOXacin [Levaquin] 750 mg PO QDAY 9 Days #9 tablet 03/25/17 ED Review of Systems ROS: Stated complaint: RT SIDE NUMBNESS, HEADACHES Other details as noted in HPI Constitutional: denies: fever Gastrointestinal: nausea, vomiting Neurological: headache, numbness, paresthesias. denies: weakness ED Past Medical Hx - Past Medical History Previous Medical History?: Yes Hx Hypertension: Yes Additional medical history: Morbid Obesity, Genital Herpes - Surgical History Past Surgical History?: Yes Additional Surgical History: , kidney, gall stones removed, - Social History Smoking Status: Current Every Day Smoker Substance Use Type: None - Medications Home Medications: Home Medications Medication Instructions Recorded Confirmed Last Taken Type Ibuprofen [Motrin] 800 mg PO Q8HR PRN #20 tablet 05/24/16 Unknown Rx Lisinopril [Zestril TAB] 5 mg PO QDAY #30 tablet 05/24/16 Unknown Rx amLODIPine 1 tab PO DAILY #30 tablet 05/24/16 Unknown Rx ALBUTEROL Inhaler (OR & NICU) 2 puff IH QID PRN #1 inhalation 03/25/17 Unknown Rx [ProAir HFA Inhaler] Cetirizine HCl [ZyrTEC] 10 mg PO QDAY #10 capsule 03/25/17 Unknown Rx Fluticasone [Flonase] 1 spray NS QDAY 10 Days #1 bottle 03/25/17 Unknown Rx Ibuprofen [Motrin] 600 mg PO Q6H PRN #12 tablet 03/25/17 Unknown Rx levoFLOXacin [Levaquin] 750 mg PO QDAY 9 Days #9 tablet 03/25/17 Unknown Rx ED Physical Exam - General Limitations: No Limitations General appearance: alert, in no apparent distress ED Course Vital Signs 01/04/19 01/04/19 01:18 01:49 Temperature 97.9 F Pulse Rate 81 77 Respiratory 18 18 Rate Blood Pressure 187/93 Blood Pressure 189/97 [Left] O2 Sat by Pulse 97 100 Oximetry ED Medical Decision Making - Lab Data Result diagrams: 01/04/19 01:30 Critical care attestation.: If time is entered above; I have spent that time in minutes in the direct care of this critically ill patient, excluding procedure time. ED Disposition Condition: Stable
[2019-01-04 02:28] LABS: BUN/Creatinine Ratio 11; Blood Urea Nitrogen 12 mg/dL (7-17); Calcium 9.2 mg/dL (8.4-10.2); Hemolysis Index 2
[2019-01-04 02:30] LABS: INR 0.94 (0.87-1.13); Partial Thromboplastin Time 30.4 Sec. (24.2-36.6); Thrombin Time 16.1 Sec. (15.1-19.6)
--- NOTE | 2019-01-04 03:32 | Cat Scan Report ---
CTA NECK WITH CONTRAST HISTORY: Headaches; right-sided numbness COMPARISON: None. TECHNIQUE: Routine CTA of the neck was performed. 3-D/MIP reformats were postprocessed. Percentage s tenosis is determined by direct quantitative measurements of diseased internal carotid artery diamete r compared with normal distal internal carotid artery reference segments or by criteria similar to NA SCET where applicable.All CT scans at this location are performed using CT dose reduction for ALARA b y means of automated exposure control CONTRAST: 100 ml of Omnipaque 350 FINDINGS: Aortic arch: No significant abnormality. Cervical vertebral arteries: Left vertebral artery is normal from its origin up to basilar artery for mation. Right vertebral artery appears to be normal. Origin and extraosseous segments are not seen we ll due to adjacent venous contamination. Common carotid arteries: No significant abnormality. Carotid bifurcations: Normal Cervical internal carotid arteries: No significant abnormality. Additional findings: None. IMPRESSION: 1. No significant abnormality. Signer Name: Michael Lund MD Signed: 01/04/2019 3:27 AM Workstation Name: [id number]
--- NOTE | 2019-01-04 03:38 | Cat Scan Report ---
CTA HEAD WITH CONTRAST HISTORY: Headaches; right-sided numbness COMPARISON: None. TECHNIQUE: Routine non-contrast CT Head, CTA of the head and post-contrast CT Head are performed. 3-D /MIP reformats postprocessed. All CT scans at this location are performed using CT dose reduction for ALARA by means of automated exposure control CONTRAST: 100 ml of Omnipaque 350 FINDINGS: CTA Head: Intracranial vertebral arteries: No significant abnormality. Basilar artery: No significant abnormality. Posterior cerebral arteries: No significant abnormality. Intracranial internal carotid arteries: No significant abnormality. Anterior cerebral arteries: No significant abnormality. Middle cerebral arteries: No significant abnormality. Dural venous sinuses:Not optimally opacified. No significant abnormality. Additional findings: None. IMPRESSION: 1. No significant abnormality. Signer Name: Michael Lund MD Signed: 01/04/2019 3:33 AM Workstation Name: [id number]
[2019-01-04] MEDS ORDERED: PROMETHAZINE 25 MG RECT SUPP PR PRN (04:01)
[2019-01-04] MEDS ORDERED: METOCLOPRAMIDE 10 MG TAB PO PRN (04:01)
[2019-01-04] MEDS ORDERED: MAGNESIUM HYDROXIDE (MOM) ORAL LIQD UDC PO PRN (04:01)
[2019-01-04] MEDS ORDERED: ONDANSETRON 4 MG/2 ML INJ IV PRN (04:01)
[2019-01-04] MEDS ORDERED: MORPHINE 2 MG/1 ML INJ IV PRN (04:01)
[2019-01-04] MEDS ORDERED: oxyCODONE /ACETAMINOPHEN 5-325MG TAB PO PRN (04:01)
--- NOTE | 2019-01-04 04:15 | History and Physical Report ---
History of Present Illness Date of examination: 01/04/19 Date of admission: 01/04/19 Chief complaint: Right-sided numbness Headache Unsteady gait History of present illness: 53-year-old after [place] female with known history of hypertension presenting to the emergency room today complaining of headache that has been ongoing for about 3 days. She has known history of migraine headaches. Headache was worse today and she had associated right-sided numbness and weakness. She also indicates that she has been having difficulty with her balance throughout the day. She denies any blurry vision denies any fall. Denies any chest pain or shortness of breath. Denies any nausea vomiting. Upon arrival in the emergency room she was evaluated by the telemetry neur ologist who indicated that patient is not a TPA candidate. Work-up so far including CT scan of the brain and CT angiogram has been within normal limits. Headache and numbness also seems to have resolved. She will be evaluated and ruled out for CVA. Past History Past Medical History: hypertension, other (Kidney stones) Past Surgical History: Other (Surgery for kidney stones) Social history: smoking (Smokes a pack of cigarette daily) Family history: diabetes (Mother had diabetes), hypertension (Mother had hypertension), stroke (Grandmother had stroke), other (Mother had a history of dementia) Medications and Allergies Allergies Allergy/AdvReac Type Severity Reaction Status Date / Time amoxicillin Allergy Hives Verified 01/04/19 01:18 Home Medications Medication Instructions Recorded Confirmed Last Taken Type Ibuprofen [Motrin] 800 mg PO Q8HR PRN #20 tablet 05/24/16 Unknown Rx Lisinopril [Zestril TAB] 5 mg PO QDAY #30 tablet 05/24/16 Unknown Rx amLODIPine 1 tab PO DAILY #30 tablet 05/24/16 Unknown Rx ALBUTEROL Inhaler (OR & NICU) 2 puff IH QID PRN #1 inhalation 03/25/17 Unknown Rx [ProAir HFA Inhaler] Cetirizine HCl [ZyrTEC] 10 mg PO QDAY #10 capsule 03/25/17 Unknown Rx Fluticasone [Flonase] 1 spray NS QDAY 10 Days #1 bottle 03/25/17 Unknown Rx Ibuprofen [Motrin] 600 mg PO Q6H PRN #12 tablet 03/25/17 Unknown Rx levoFLOXacin [Levaquin] 750 mg PO QDAY 9 Days #9 tablet 03/25/17 Unknown Rx Review of Systems Neurological: weakness, numbness, headaches, gait dysfunction Exam - Constitutional Vitals: Temp Pulse Resp BP Pulse Ox 98.5 F 72 18 147/90 100 01/04/19 01:30 01/04/19 03:00 01/04/19 03:00 01/04/19 03:00 01/04/19 03:00 General appearance: Present: no acute distress, well-nourished, obese - EENT Eyes: Present: PERRL, EOM intact ENT: hearing intact, clear oral mucosa, dentition normal - Neck Neck: Present: supple, normal ROM - Respiratory Respiratory effort: normal Respiratory: bilateral: CTA - Cardiovascular Rhythm: regular Heart Sounds: Present: S1 & S2 - Extremities Extremities: no ischemia, pulses intact, pulses symmetrical Extremity abnormal: edema (Trace bilateral ankle edema) Peripheral Pulses: within normal limits - Integumentary Integumentary: Present: clear, warm, dry - Musculoskeletal Musculoskeletal: strength equal bilaterally - Psychiatric Psychiatric: appropriate mood/affect, intact judgment & insight, cooperative - Neurologic Neurologic: CNII-XII intact, moves all extremities Results - Labs CBC & Chem 7: 01/04/19 01:30 01/04/19 01:30 Labs: Abnormal lab results 01/04/19 Range/Units 01:30 MCH 26 L (28-32) pg Lymph % (Auto) 41.9 H (13.4-35.0) % Assessment and Plan - Patient Problems (1) Numbness and tingling Current Visit: Yes Status: Acute Plan to address problem: Patient has been admitted and will be ruled out for CVA. This could also be due to complex migraine headache which seems to have resolved. Work-up so far has been negative. CT scan of the head and CT angiogram has been within normal limits. Patient will be scheduled for MRI of the brain. We will commence patient on daily aspirin. We will request neurology evaluation and recommendation. (2) Headache Current Visit: Yes Status: Acute Plan to address problem: This could be a complex migraine headache which seems to have subsided. We will continue patient on analgesic medication as needed. (3) Obesity Current Visit: Yes Status: Acute Plan to address problem: We recommend dietary consult prior to discharge. (4) Hypertension Current Visit: Yes Status: Acute Plan to address problem: We will continue her routine home medications and monitor vital signs closely. (5) DVT prophylaxis Current Visit: Yes Status: Acute Plan to address problem: Patient placed on subcutaneous heparin. (6) Full code status Current Visit: Yes Status: Acute
[2019-01-04] MEDS: HEPARIN 5,000 UNIT/1 ML VIAL SUB-Q SCH ×3 (06:31→21:31)
--- NOTE | 2019-01-04 08:08 | Progress Note ---
Subjective Date of service: 01/04/19 Interval history: patient seen for neuro consult and had episode of severe headaches and then right sided weakness she has long hx of hypertension and w/u suggests that HTN cause of the episode now exam is normnal and symptoms atre better neuro w/u in progress and exam is unremarkable Thanks Objective - Vital Sign Vital Signs - 12hr 01/04/19 01/04/19 01/04/19 01:18 01:30 01:46 Temperature 97.9 F 98.5 F Pulse Rate 81 79 77 Respiratory 18 18 20 Rate Blood Pressure 187/93 156/91 Blood Pressure [Left] O2 Sat by Pulse 97 100 Oximetry 01/04/19 01/04/19 01/04/19 01:49 01:50 02:00 Temperature Pulse Rate 77 83 Respiratory 18 18 18 Rate Blood Pressure 189/97 Blood Pressure 189/97 [Left] O2 Sat by Pulse 100 100 Oximetry 01/04/19 01/04/19 01/04/19 02:15 02:30 02:45 Temperature Pulse Rate 82 77 Respiratory 18 20 Rate Blood Pressure 156/102 163/89 Blood Pressure 151/61 [Left] O2 Sat by Pulse 100 100 Oximetry 01/04/19 01/04/19 01/04/19 02:51 03:00 03:11 Temperature Pulse Rate 72 Respiratory 18 Rate Blood Pressure 163/89 147/90 147/90 Blood Pressure 147/90 [Left] O2 Sat by Pulse 98 99 99 Oximetry 01/04/19 01/04/19 01/04/19 03:21 03:30 03:41 Temperature 98.6 F Pulse Rate 70 Respiratory 18 Rate Blood Pressure 151/85 170/100 170/100 Blood Pressure 154/62 [Left] O2 Sat by Pulse 100 100 99 Oximetry 01/04/19 01/04/19 01/04/19 03:51 05:30 05:41 Temperature Pulse Rate 75 Respiratory 18 Rate Blood Pressure 157/97 137/89 Blood Pressure 137/62 [Left] O2 Sat by Pulse 97 100 92 Oximetry 01/04/19 01/04/19 01/04/19 05:51 06:00 06:29 Temperature 97.9 F Pulse Rate 82 Respiratory 20 Rate Blood Pressure 157/97 165/89 143/70 Blood Pressure [Left] O2 Sat by Pulse 96 94 92 Oximetry 01/04/19 06:52 Temperature Pulse Rate Respiratory 18 Rate Blood Pressure Blood Pressure [Left] O2 Sat by Pulse 99 Oximetry - Laboratory Findings CBC and BMP: 01/04/19 01:30 01/04/19 01:30 Abnormal Lab Findings: Abnormal Labs 01/04/19 01:30 MCH 26 L Lymph % (Auto) 41.9 H
[2019-01-04] MEDS: ASPIRIN 325 MG TAB PO SCH (09:15)
[2019-01-04] MEDS ORDERED: IBUPROFEN 800 MG TAB PO PRN (12:54)
[2019-01-04] MEDS ORDERED: ALBUTEROL 8.5 GM INHALATION IH PRN (12:54)
--- NOTE | 2019-01-04 12:54 | Progress Note ---
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 The more aggressive migraine. 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 May consider triptan vs propranalol (2) Hypertension Current Visit: Yes Status: Acute Plan to address problem: Patient has fair control of blood pressure. We'll restart patient's antihypertensives back. (3) Numbness and tingling Current Visit: Yes Status: Acute Plan to address problem: Patient numbness has resolved. Workup thus far negative. Most likely secondary to migraine. No evidence of CVA or physical exam. (4) Obesity Current Visit: Yes Status: Acute Qualifiers: Body mass index: BMI 40.0-44.9 Qualified Code(s): E66.01 - Morbid (severe) obesity due to excess calories; Z68.41 - Body mass index (BMI) 40.0-44.9, adult History Interval history: Patient 52-year-old history of hypertension and migraines. Presented with 3 day history of headache with right-sided numbness. Patient workup essentially negative CT scan and negative CT angiogram negative and symptoms have resolved. Patient has no headache no pain. A present most likely consistent with atypical migraine. Patient just here today. Has MRI pending anticipated discharge in am. Hospitalist Physical - Constitutional Vitals: Temp Pulse Resp BP Pulse Ox 97.9 F 82 18 143/70 99 01/04/19 06:29 01/04/19 06:29 01/04/19 06:52 01/04/19 06:29 01/04/19 06:52 General appearance: Present: no acute distress, well-nourished, obese - EENT Eyes: Present: PERRL, EOM intact ENT: hearing intact, clear oral mucosa, dentition normal, no oropharyngeal erythema, no poor dentition, no thrush - Neck Neck: Present: supple, normal ROM - Respiratory Respiratory: bilateral: CTA - Cardiovascular Rhythm: regular - Extremities Extremities: no ischemia, pulses intact, pulses symmetrical, No edema, normal temperature, normal color Peripheral Pulses: within normal limits - Abdominal General gastrointestinal: soft, non-tender, non-distended, normal bowel sounds, no hepatomegaly, no splenomegaly - Integumentary Integumentary: Present: clear, warm, dry - Psychiatric Psychiatric: appropriate mood/affect, intact judgment & insight - Neurologic Neurologic: CNII-XII intact, focal deficits, moves all extremities Results - Labs CBC & Chem 7: 01/04/19 01:30 01/04/19 01:30 Labs: Laboratory Last Values WBC 6.6 K/mm3 (4.5-11.0) 01/04/19 01:30 RBC 4.76 M/mm3 (3.65-5.03) 01/04/19 01:30 Hgb 12.5 gm/dl (10.1-14.3) 01/04/19 01:30 Hct 38.8 % (30.3-42.9) 01/04/19 01:30 MCV 82 fl (79-97) 01/04/19 01:30 MCH 26 pg (28-32) L 01/04/19 01:30 MCHC 32 % (30-34) 01/04/19 01:30 RDW 15.0 % (13.2-15.2) 01/04/19 01:30 Plt Count 250 K/mm3 (140-440) 01/04/19 01:30 Lymph % (Auto) 41.9 % (13.4-35.0) H 01/04/19 01:30 Taney % (Auto) 7.0 % (0.0-7.3) 01/04/19 01:30 Eos % (Auto) 1.6 % (0.0-4.3) 01/04/19 01:30 Baso % (Auto) 0.6 % (0.0-1.8) 01/04/19 01:30 Lymph # 2.8 K/mm3 (1.2-5.4) 01/04/19 01:30 Taney # 0.5 K/mm3 (0.0-0.8) 01/04/19 01:30 Eos # 0.1 K/mm3 (0.0-0.4) 01/04/19 01:30 Baso # 0.0 K/mm3 (0.0-0.1) 01/04/19 01:30 Seg Neutrophils % 48.9 % (40.0-70.0) 01/04/19 01:30 Seg Neutrophils # 3.2 K/mm3 (1.8-7.7) 01/04/19 01:30 PT 12.5 Sec. (12.2-14.9) 01/04/19 01:30 INR 0.94 (0.87-1.13) 01/04/19 01:30 APTT 30.4 Sec. (24.2-36.6) 01/04/19 01:30 Thrombin Time 16.1 Sec. (15.1-19.6) 01/04/19 01:30 Sodium 141 mmol/L (137-145) 01/04/19 01:30 Potassium 3.9 mmol/L (3.6-5.0) 01/04/19 01:30 Chloride 102.9 mmol/L (98-107) 01/04/19 01:30 Carbon Dioxide 25 mmol/L (22-30) 01/04/19 01:30 Anion Gap 17 mmol/L 01/04/19 01:30 BUN 12 mg/dL (7-17) 01/04/19 01:30 Creatinine 1.1 mg/dL (0.7-1.2) 01/04/19 01:30 Estimated GFR > 60 ml/min 01/04/19 01:30 BUN/Creatinine Ratio 11 % 01/04/19 01:30 Glucose 95 mg/dL (65-100) 01/04/19 01:30 POC Glucose 130 (70-105) H 01/04/19 08:35 Calcium 9.2 mg/dL (8.4-10.2) 01/04/19 01:30 Troponin T < 0.010 ng/mL (0.00-0.029) 01/04/19 01:30 Active Medications - Current Medications Current Medications: Generic Name Dose Route Start Last Admin Trade Name Malq PRN Reason Stop Dose Admin Aspirin 325 mg 01/04/19 10:00 01/04/19 09:15 Aspirin PO 325 mg QDAY [facility] Administration Bisacodyl 10 mg 01/04/19 04:01 Dulcolax LA QDAY PRN Constipation Heparin Sodium (Porcine) 5,000 unit 01/04/19 06:00 01/04/19 06:31 Heparin SUB-Q Not Given Q8HR JAMISON Magnesium Hydroxide 30 ml 01/04/19 04:01 Milk Of Magnesia PO Q4H PRN Constipation Metoclopramide HCl 10 mg 01/04/19 04:01 Reglan PO Q6H PRN Nausea And Vomiting Morphine Sulfate 2 mg 01/04/19 04:01 Morphine IV Q4H PRN Pain, Moderate (4-6) Ondansetron HCl 4 mg 01/04/19 04:01 Zofran IV Q8H PRN Nausea And Vomiting Oxycodone/Acetaminophen 1 tab 01/04/19 04:01 Percocet 5/325 PO Q6H PRN Pain, Moderate (4-6) Pravastatin Sodium 20 mg 01/04/19 22:00 Pravachol PO QHS JAMISON Promethazine HCl 25 mg 01/04/19 04:01 Phenergan LA Q6H PRN Nausea And Vomiting Sodium Chloride 10 ml 01/04/19 04:01 Sodium Chloride Flush Syringe 10 Ml IV PRN PRN LINE FLUSH Sodium Chloride 10 ml 01/04/19 10:00 01/04/19 09:15 Sodium Chloride Flush Syringe 10 Ml IV 10 ml BID JAMISON Administration Sodium Chloride 10 ml 01/04/19 04:01 Sodium Chloride Flush Syringe 10 Ml IV PRN PRN LINE FLUSH
[2019-01-04] MEDS ORDERED: amLODIPine 5 MG TAB PO SCH (13:00)
[2019-01-04] MEDS ORDERED: ALBUTEROL 2.5 MG/3 ML NEBU IH PRN (14:05)
[2019-01-04] MEDS: LISINOPRIL 5 MG TAB PO SCH (15:03)
[2019-01-04] MEDS ORDERED: PRAVASTATIN 20 MG TAB PO SCH (22:00)
[2019-01-05] MEDS: HEPARIN 5,000 UNIT/1 ML VIAL SUB-Q SCH ×2 (05:38→13:48)
[2019-01-05] MEDS ORDERED: LORazepam 2 MG/ML VIAL IV NR (08:49)
[2019-01-05] MEDS ORDERED: amLODIPine 5 MG TAB PO SCH (10:00)
[2019-01-05] MEDS: ASPIRIN 325 MG TAB PO SCH (10:00)
[2019-01-05] MEDS ORDERED: hydroCHLOROthiazide 25 MG TAB PO SCH (10:00)
[2019-01-05] MEDS ORDERED: levoFLOXacin 750 MG TAB PO SCH (10:00)
[2019-01-05] MEDS: LISINOPRIL 5 MG TAB PO SCH (10:01)
[2019-01-05] MEDS ORDERED: PNEUMOCOCCAL 23 Valent 0.5 ML VIAL IM ONE (12:00)
[2019-01-05] MEDS ORDERED: FLU VACC QUAD 2019-20 (3 YR UP)/PF 60 MCG/0.5 ML SYRINGE IM ONE (12:00)
--- NOTE | 2019-01-05 12:35 | Magnetic Resonance Report ---
MRI BRAIN WITHOUT CONTRAST INDICATION / CLINICAL INFORMATION: stroke. Sensory disturbance with right-sided numbness. Headaches. TECHNIQUE: Multiplanar, multisequence MR images of the brain were obtained. COMPARISON: None available. FINDINGS: BRAIN / INTRACRANIAL CONTENTS: Ventricles and cortical sulci are normal in size and configuration. Th ere is no mass effect. No evidence of intracranial hemorrhage or extra-axial fluid collection is seen . No areas of abnormal brain parenchymal signal intensity are identified. There is no indication of r emote cortical infarction. Diffusion weighted scans are negative. There is no indication of acute or subacute ischemic injury. The brainstem and cerebellum have an unremarkable appearance. CRANIOCERVICAL JUNCTION: No abnormalities are identified at the craniocervical junction. VASCULAR FLOW-VOIDS: Normal flow-voids are present within the major intracranial vessels. ORBITS: The orbits have an unremarkable appearance. SINUSES / MASTOIDS: A small retention cyst or polyp is present at the base of the left maxillary sinu s. There is no additional indication of inflammatory disease in the paranasal sinuses or mastoid air cells. ADDITIONAL FINDINGS: None. IMPRESSION: 1. Negative MRI brain without contrast. 2. Diffusion weighted scans demonstrate no indication of acute or subacute ischemic injury. Signer Name: Carlos Monaco MD Signed: 01/05/2019 12:31 PM Workstation Name: [id number]
[2019-01-05 14:03] LABS: Chol/HDL Ratio 4.14 %
--- NOTE | 2019-01-05 15:17 | Discharge Summary ---
Providers - Providers Date of Admission: 01/04/19 04:01 Attending physician: URSULA BERNARDO MD 01/04/19 Consult to Physician [CONS] Routine Comment: Consulting Provider: TYRON JETER Physician Instructions: Reason For Exam: R/O CVA 01/04/19 04:02 Consult to Dietitian/Nutrition [CONS] Routine Physician Instructions: Reason For Exam: Reason for Consult: Nutrition Recommendations Reason for Consult: Diet education Occupational Therapy Evaluate and Treat [CONS] Routine Comment: Reason For Exam: Neuro deficits Physical Therapy Evaluation and Treat [CONS] Routine Comment: Reason For Exam: Neuro deficits 01/04/19 04:04 Speech Therapy Evaluation and Treat [CONS] Routine Reason For Exam: swallow eval Primary care physician: PEARL TECHNICIAN Hospitalization Reason for admission: TIA Condition: Stable Hospital course: 53-year-old after [place] female with known history of hypertension presenting to the emergency room today complaining of headache that has been ongoing for about 3 days. She has known history of migraine headaches. Headache was worse today and she had associated right-sided numbness and weakness. She also indicates that she has been having difficulty with her balance throughout the day. She denies any blurry vision denies any fall. Denies any chest pain or shortness of breath. Denies any nausea vomiting. Upon arrival in the emergency room she was evaluated by the telemetry neurologist who indicated that patient is not a TPA candidate. Work-up so far including CT scan of the brain and CT angiogram has been within normal limits. Headache and numbness also seems to have resolved. She will be evaluated and ruled out for CVA. Patient was seen by Neurology and considering her hx of Running out of Her medications felt this is TIA secondary to HYPERTENSIVE URGENCY. The patient underwent MRI which was negative. Weightloss Recommended. Counselling on medication compliance discussed in detail Hypertensive Urgency Headche secondary to HTN TIA Morbid Obesity Disposition: DC-01 TO HOME OR SELFCARE Time spent for discharge: 35 mins Core Measure Documentation - Palliative Care Palliative Care/ Comfort Measures: Not Applicable - Core Measures Any of the following diagnoses?: none - Stroke Discharge Requirements Statin for LDL = or >70 mg/dl on DC: Yes Anticoag for atrial fib/atrial flutter: Not Applicable Antithrombotic for ischemic stroke: Yes Exam - Constitutional Vitals: Temp Pulse Resp BP Pulse Ox 98.3 F 79 20 146/83 95 01/05/19 05:53 01/05/19 05:53 01/05/19 05:53 01/05/19 10:01 01/05/19 08:38 General appearance: Present: no acute distress, well-nourished - EENT Eyes: Present: PERRL ENT: hearing intact, clear oral mucosa - Neck Neck: Present: supple, normal ROM - Respiratory Respiratory effort: normal Respiratory: bilateral: CTA - Cardiovascular Rhythm: regular Heart Sounds: Present: S1 & S2. Absent: systolic murmur - Extremities Extremities: no ischemia, pulses intact, pulses symmetrical, No edema, normal temperature, normal color, Full ROM Peripheral Pulses: within normal limits - Abdominal General gastrointestinal: Present: soft, non-tender, non-distended, normal bowel sounds - Integumentary Integumentary: Present: clear, warm, dry - Musculoskeletal Musculoskeletal: strength equal bilaterally - Psychiatric Psychiatric: appropriate mood/affect, intact judgment & insight - Neurologic Neurologic: CNII-XII intact, moves all extremities, gait normal - Allied Health Allied health notes reviewed: nursing Plan Activity: advance as tolerated, fall precautions Diet: low salt Special Instructions: record daily weights, record daily BP diary Follow up with: PRIMARY CAREMD [Primary Care Provider] - 3-5 Days MOHAN ALEXANDER MD [Staff Physician] - 7 Days Prescriptions: AtorvaSTATin [Lipitor] 40 mg PO QHS #30 tab Aspirin [Adult Aspirin] 81 mg PO DAILY #30 tablet. amLODIPine 1 tab PO DAILY #30 tablet Lisinopril/Hydrochlorothiazide [Zestoretic 20-25 mg] 1 tab PO QDAY #30 tab
--- NOTE | 2019-01-05 15:57 | Progress Note ---
Subjective Date of service: 01/05/19 Interval history: I personally went over the MRI and reviewed the report as well... MRI IS NORMAL NO ACUTE STROKE SUSPECT EPISODE WAS tia OK to discharge based on checks and suspect BP control issues Objective - Vital Sign Vital Signs - 12hr 01/05/19 01/05/19 01/05/19 05:00 05:53 08:38 Temperature 98.3 F Pulse Rate 79 79 Respiratory 20 Rate Blood Pressure 161/85 O2 Sat by Pulse 94 95 Oximetry 01/05/19 01/05/19 10:00 10:01 Temperature Pulse Rate Respiratory Rate Blood Pressure 146/83 146/83 O2 Sat by Pulse Oximetry - Laboratory Findings CBC and BMP: 01/04/19 01:30 01/04/19 01:30 Abnormal Lab Findings: Abnormal Labs 01/04/19 01/04/19 01:30 08:35 MCH 26 L Lymph % (Auto) 41.9 H POC Glucose 130 H
[2019-01-05 16:40] VITALS: BP 146/66
== END 2019-01-05 17:00 | disposition home or self-care (01) ==
LOC: ED 01:11 → 3A 04:01 → INTOOBSV 04:01
PROVIDERS: ADMIT Internal Medicine Geriatric Medicine; ATTEND Internal Medicine
DX: R20.0 Anesthesia of skin (principal); R20.2 Paresthesia of skin; R51 Headache; R11.2 Nausea with vomiting, unspecified; E66.01 Morbid (severe) obesity due to excess calories; I10 Essential (primary) hypertension; F17.210 Nicotine dependence, cigarettes, uncomplicated; Z23 Encounter for immunization; Z87.442 Personal history of urinary calculi; Z79.899 Other long term (current) drug therapy; Z79.82 Long term (current) use of aspirin; Z88.0 Allergy status to penicillin; Z68.43 Body mass index [BMI] 50.0-59.9, adult
CPT/HCPCS: 36415; 70450; 70496; 70498; 70551; 80048; 80061; 82962; 84484; 85025; 85610; 85670; 85730; 90686; 90732; 92610; 93005; 93010; 93306; 94640; 96361; 96372; 96374; 96375; 99284; 99406; A9270; G0008; G0378; J1100; J1644; J1885; J2060; J2765; J7030; Q9967; 90471; J1200

== ENCOUNTER 2019-12-28 16:50 | Emergency (ER) | payer MEDICAID ==
--- NOTE | 2019-12-28 17:33 | Emergency Department Report ---
Blank Doc - Documentation Documentation: 54-year-old female that presents with abdominal pain with nausea. This initial assessment/diagnostic orders/clinical plan/treatment(s) is/are subject to change based on patient's health status, clinical progression and re- assessment by fellow clinical providers in the ED. Further treatment and workup at subsequent clinical providers discretion. Patient/guardians urged not to elope from the ED as their condition may be serious if not clinically assessed and managed. Initial orders include: 1- Patient sent to [facility] for further evaluation and treatment 2- labs 3- UA
[2019-12-28 18:07] LABS: Basophils # (Auto) 0.1 K/mm3 (0.0-0.1); Basophils % (Auto) 1.1 % (0.0-1.8); Eosinophils # (Auto) 0.1 K/mm3 (0.0-0.4); Eosinophils % (Auto) 1.7 % (0.0-4.3); Hematocrit 39.1 % (30.3-42.9); Hemoglobin 12.7 gm/dl (10.1-14.3); Lymphocytes # (Auto) 3.1 K/mm3 (1.2-5.4); Lymphocytes % (Auto) 41.9 % (13.4-35.0); Mean Corpuscular HGB Conc 32 % (30-34); Mean Corpuscular Volume 82 fl (79-97); Monocytes # (Auto) 0.7 K/mm3 (0.0-0.8); Monocytes % (Auto) 9.3 % (0.0-7.3); Platelet Count 267 K/mm3 (140-440); Red Blood Count 4.78 M/mm3 (3.65-5.03); Red Cell Distribution Width 14.9 % (13.2-15.2)
[2019-12-28 18:15] LABS: Alanine Aminotransferase 12 units/L (7-56); Albumin 4.1 g/dL (3.9-5); BUN/Creatinine Ratio 15; Blood Urea Nitrogen 16 mg/dL (7-17); Calcium 9.6 mg/dL (8.4-10.2); Hemolysis Index 6
[2019-12-28 18:58] LABS: Bilirubin,Urine NEG (Negative); Blood,Urine NEG (Negative); Color,Urine Yellow (Yellow); Protein,Urine <15 mg/dL mg/dL (Negative); Urobilinogen,Urine < 2.0 mg/dL (<2.0)
[2019-12-28] MEDS ORDERED: SODIUM CHLORIDE 0.9% 1000 ML 1,000 ML IV ONE (20:11)
[2019-12-28] MEDS ORDERED: KETOROLAC 30 MG/1 ML INJ IV ONE (20:11)
[2019-12-28] MEDS ORDERED: MORPHINE 4 MG/1 ML INJ IV ONE (20:11)
[2019-12-28] MEDS ORDERED: ONDANSETRON 4 MG/2 ML INJ IV ONE (20:12)
--- NOTE | 2019-12-28 21:23 | Cat Scan Report ---
CT ABDOMEN AND PELVIS WITHOUT CONTRAST INDICATION / CLINICAL INFORMATION: Abdominal pain: suspected kidney stones. TECHNIQUE: Axial CT images were obtained through the abdomen and pelvis without IV contrast. All CT scans at [facility] location are performed using CT dose reduction for ALARA by means of automated exposure control. COMPARISON: None available. FINDINGS: LOWER CHEST: No significant abnormality. LIVER: No significant abnormality. GALLBLADDER: No significant abnormality. BILE DUCTS: No significant abnormality. PANCREAS: No significant abnormality. SPLEEN: No significant abnormality. ADRENALS: No significant abnormality. RIGHT KIDNEY / URETER: Multiple right-sided pelvicalyceal calcified stones are noted, the largest carol suring 1.1 cm in the interpolar region. 2 inferior pole pelvicalyceal stones are noted measuring appr oximately 1 cm and 9 mm. Additionally there is a minimally complex right renal cyst measures 3.5 cm a nd demonstrates rim calcification. No hydronephrosis. LEFT KIDNEY / URETER: No calcified stones or hydronephrosis. STOMACH / SMALL BOWEL: No significant abnormality. COLON: No significant abnormality. APPENDIX: No significant abnormality. PERITONEUM: No free fluid. No free air. No fluid collection. LYMPH NODES: No significant adenopathy. AORTA / ARTERIES: Mild atherosclerotic calcification without acute abnormality. IVC / VEINS: No significant abnormality. URINARY BLADDER: No significant abnormality. Specifically, no evidence of calcified stone burden. REPRODUCTIVE ORGANS: No significant abnormality. ADDITIONAL FINDINGS: Fat-containing a umbilical hernia. SKELETAL SYSTEM: Mild multilevel degenerative changes are noted of the spine. Facet arthropathy is no smitha most prominent at L4-L5 and L5-S1. No evidence of aggressive osseous lesions. IMPRESSION: 1. Multiple large nonobstructive right-sided pelvicalyceal stones described in detail above. No hydro nephrosis. 2. Minimally complex right renal cyst measures 3.5 cm and demonstrates rim calcifications. Signer Name: Dallas Rasheed MD Signed: 12/28/2019 9:18 PM Workstation Name: [id number]
--- NOTE | 2019-12-28 22:53 | Emergency Department Report ---
ED Abdominal Pain HPI - General Chief Complaint: Abdominal Pain Stated Complaint: BACK PAIN/ABD PAIN Time Seen by Provider: 12/28/19 17:33 Source: patient Mode of arrival: Ambulatory Limitations: No Limitations - History of Present Illness Initial Comments: Patient is a 54-year-old -[place] female with a history of hypertension, morbid obesity, recurrent kidney stones and asthma who presents to the ED with complaint of acute onset persistent intermittent nausea and vomiting and bilateral flank pain that radiates to the lower abdomen for the last 1 week. Patient states that she was initially evaluated by her primary care physician about 5 days ago and had an abdomen pelvis CT scan without contrast that revealed that she had kidney stones. Patient states that she has been taking Aleve and Flomax for the kidney stones but the pain and the nausea and vomiting have worsened especially in the last 3 days. Patient states that the pain has been constant, sharp and stabbing and that she has not been able to keep even the medication that was prescribed for her. Patient denies fever, chills, vaginal bleeding, hematuria, dysuria, urinary frequency and urgency, low back pain, chest pain, shortness of breath, fever, chills, cough, sore throat, headache, dizziness or syncope. MD Complaint: abdominal pain (Diffuse lower), flank pain (Bilaterally) -: Sudden, week(s) (1) Location: suprapubic, L flank, R flank Radiation: suprapubic, L flank, R flank, bilateral flank Migration to: no migration Severity scale (0 -10): 7 Quality: aching, sharp Consistency: constant Improves With: nothing Worsens With: vomiting Context: other (Recently diagnosed with kidney stones) Associated Symptoms: denies other symptoms, nausea, vomiting. denies: diarrhea, fever, chills, constipation, dysuria, hematemesis, hematochezia, melena, hematuria, anorexia, syncope Treatments Prior to Arrival: NSAIDs - Related Data Previous Rx's Medication Instructions Recorded Last Taken Type Ibuprofen [Motrin 800 MG tab] 800 mg PO Q8HR PRN #20 tablet 05/24/16 Unknown Rx Albuterol Mdi (or & Nicu Only) 2 puff IH QID PRN #1 inhalation 03/25/17 Unknown Rx [ProAir HFA Inhaler] Cetirizine HCl [ZyrTEC 10mg cap] 10 mg PO QDAY #10 capsule 03/25/17 Unknown Rx Fluticasone [Flonase] 1 spray NS QDAY 10 Days #1 bottle 03/25/17 Unknown Rx Ibuprofen [Motrin 600 MG tab] 600 mg PO Q6H PRN #12 tablet 03/25/17 Unknown Rx Aspirin [Adult Aspirin] 81 mg PO DAILY #30 tablet. 01/05/19 Unknown Rx AtorvaSTATin [Lipitor] 40 mg PO QHS #30 tab 01/05/19 Unknown Rx Lisinopril/Hydrochlorothiazide 1 tab PO QDAY #30 tab 01/05/19 Unknown Rx [Zestoretic 20-25 mg] amLODIPine 1 tab PO DAILY #30 tablet 01/05/19 Unknown Rx Ketorolac [Toradol] 10 mg PO Q8H PRN #20 tablet 12/28/19 Unknown Rx Ondansetron [Zofran Odt] 4 mg PO Q6HR PRN #20 tab.rapdis 12/28/19 Unknown Rx traMADoL [Ultram] 50 mg PO Q6HR PRN #12 tablet 12/28/19 Unknown Rx Allergies Allergy/AdvReac Type Severity Reaction Status Date / Time amoxicillin Allergy Hives Verified 01/04/19 01:18 ED Review of Systems ROS: Stated complaint: BACK PAIN/ABD PAIN Other details as noted in HPI Constitutional: denies: chills, fever Eyes: denies: eye pain, eye discharge, vision change ENT: denies: ear pain, throat pain Respiratory: denies: cough, shortness of breath, wheezing Cardiovascular: denies: chest pain, palpitations Endocrine: no symptoms reported Gastrointestinal: abdominal pain, nausea, vomiting. denies: diarrhea Genitourinary: denies: urgency, dysuria, discharge Musculoskeletal: denies: back pain, joint swelling, arthralgia Skin: denies: rash, lesions Neurological: denies: headache, weakness, paresthesias Psychiatric: denies: anxiety, depression Hematological/Lymphatic: denies: easy bleeding, easy bruising ED Past Medical Hx - Past Medical History Previous Medical History?: Yes Hx Hypertension: Yes Hx Congestive Heart Failure: No Hx Diabetes: No Hx Asthma: Yes Hx COPD: No Additional medical history: Morbid Obesity, Genital Herpes - Surgical History Past Surgical History?: Yes Additional Surgical History: , kidney, gall stones removed, - Social History Smoking Status: Never Smoker Substance Use Type: None - Medications Home Medications: Home Medications Medication Instructions Recorded Confirmed Last Taken Type Ibuprofen [Motrin 800 MG tab] 800 mg PO Q8HR PRN #20 tablet 05/24/16 Unknown Rx Albuterol Mdi (or & Nicu Only) 2 puff IH QID PRN #1 inhalation 03/25/17 Unknown Rx [ProAir HFA Inhaler] Cetirizine HCl [ZyrTEC 10mg cap] 10 mg PO QDAY #10 capsule 03/25/17 Unknown Rx Fluticasone [Flonase] 1 spray NS QDAY 10 Days #1 bottle 03/25/17 Unknown Rx Ibuprofen [Motrin 600 MG tab] 600 mg PO Q6H PRN #12 tablet 03/25/17 Unknown Rx Aspirin [Adult Aspirin] 81 mg PO DAILY #30 tablet. 01/05/19 Unknown Rx AtorvaSTATin [Lipitor] 40 mg PO QHS #30 tab 01/05/19 Unknown Rx Lisinopril/Hydrochlorothiazide 1 tab PO QDAY #30 tab 01/05/19 Unknown Rx [Zestoretic 20-25 mg] amLODIPine 1 tab PO DAILY #30 tablet 01/05/19 Unknown Rx Ketorolac [Toradol] 10 mg PO Q8H PRN #20 tablet 12/28/19 Unknown Rx Ondansetron [Zofran Odt] 4 mg PO Q6HR PRN #20 tab.rapdis 12/28/19 Unknown Rx traMADoL [Ultram] 50 mg PO Q6HR PRN #12 tablet 12/28/19 Unknown Rx ED Physical Exam - General Limitations: No Limitations General appearance: alert, in no apparent distress - Head Head exam: Present: atraumatic, normocephalic, normal inspection - Eye Eye exam: Present: normal appearance, PERRL, EOMI Pupils: Present: normal accommodation - ENT ENT exam: Present: normal exam, normal orophraynx, mucous membranes moist, TM's normal bilaterally, normal external ear exam - Neck Neck exam: Present: normal inspection, full ROM - Respiratory Respiratory exam: Present: normal lung sounds bilaterally. Absent: respiratory distress, wheezes, rales, rhonchi, chest wall tenderness, accessory muscle use - Cardiovascular Cardiovascular Exam: Present: regular rate, normal rhythm, normal heart sounds. Absent: systolic murmur, diastolic murmur, rubs, gallop - GI/Abdominal GI/Abdominal exam: Present: soft, tenderness (Palpable bilateral flank and diffuse lower abdominal tenderness), normal bowel sounds. Absent: guarding, rebound, hyperactive bowel sounds, hypoactive bowel sounds, organomegaly - Extremities Exam Extremities exam: Present: normal inspection, full ROM, normal capillary refill - Back Exam Back exam: Present: normal inspection, full ROM. Absent: tenderness, CVA tenderness (R), CVA tenderness (L), muscle spasm, paraspinal tenderness, vertebral tenderness - Neurological Exam Neurological exam: Present: alert, oriented X3, CN II-XII intact, normal gait, reflexes normal - Psychiatric Psychiatric exam: Present: normal affect, normal mood - Skin Skin exam: Present: warm, dry, intact, normal color. Absent: rash ED Course Vital Signs 12/28/19 17:15 Temperature 98.2 F Pulse Rate 90 Respiratory 18 Rate Blood Pressure 181/95 O2 Sat by Pulse 95 Oximetry ED Medical Decision Making - Lab Data Result diagrams: 12/28/19 17:41 12/28/19 17:41 - Radiology Data Radiology results: report reviewed, image reviewed Findings [address] [address] Cat Scan Report Signed Patient: GÓMEZ BOWLES MR#: [id number] : 1965 Acct:[id number] Age/Sex: 54 / F ADM Date: 12/28/19 Loc: ED Attending Dr: Ordering Physician: KIMBER ELDRIDGE Date of Service: 12/28/19 Procedure(s): CT abdomen pelvis wo con Accession Number(s): [id number] cc: KIMBER ELDRIDGE CT ABDOMEN AND PELVIS WITHOUT CONTRAST INDICATION / CLINICAL INFORMATION: Abdominal pain: suspected kidney stones. TECHNIQUE: Axial CT images were obtained through the abdomen and pelvis without IV contrast. All CT scans at this location are performed using CT dose reduction for ALARA by means of automated exposure control. COMPARISON: None available. FINDINGS: LOWER CHEST: No significant abnormality. LIVER: No significant abnormality. GALLBLADDER: No significant abnormality. BILE DUCTS: No significant abnormality. PANCREAS: No significant abnormality. SPLEEN: No significant abnormality. ADRENALS: No significant abnormality. RIGHT KIDNEY / URETER: Multiple right-sided pelvicalyceal calcified stones are noted, the largest measuring 1.1 cm in the interpolar region. 2 inferior pole pelvicalyceal stones are noted measuring approximately 1 cm and 9 mm. Additionally there is a minimally complex right renal cyst measures 3.5 cm and demonstrates rim calcification. No hydronephrosis. LEFT KIDNEY / URETER: No calcified stones or hydronephrosis. STOMACH / SMALL BOWEL: No significant abnormality. COLON: No significant abnormality. APPENDIX: No significant abnormality. PERITONEUM: No free fluid. No free air. No fluid collection. LYMPH NODES: No significant adenopathy. AORTA / ARTERIES: Mild atherosclerotic calcification without acute abnormality. IVC / VEINS: No significant abnormality. URINARY BLADDER: No significant abnormality. Specifically, no evidence of calcified stone burden. REPRODUCTIVE ORGANS: No significant abnormality. ADDITIONAL FINDINGS: Fat-containing a umbilical hernia. SKELETAL SYSTEM: Mild multilevel degenerative changes are noted of the spine. Facet arthropathy is noted most prominent at L4-L5 and L5-S1. No evidence of aggressive osseous lesions. IMPRESSION: 1. Multiple large nonobstructive right-sided pelvicalyceal stones described in detail above. No hydronephrosis. 2. Minimally complex right renal cyst measures 3.5 cm and demonstrates rim calcifications. Signer Name: Dallas Way MD Signed: 12/28/2019 9:18 PM Workstation Name: [id number] Transcribed By: Dictated By: DALLAS WAY Electronically Authenticated By: DALLAS WAY Signed Date/Time: 12/28/192117 DD/ 11 TD/TT: - Medical Decision Making This is a 54-year-old -[place] female with a history of hypertension, morbid obesity, recurrent kidney stones and asthma who presents to the ED with complaint of acute onset persistent intermittent nausea and vomiting and bilateral flank pain that radiates to the lower abdomen for the last 1 week. Patient states that she was initially evaluated by her primary care physician about 5 days ago and had an abdomen pelvis CT scan without contrast that revealed that she had kidney stones. Patient states that she has been taking Aleve and Flomax for the kidney stones but the pain and the nausea and vomiting have worsened especially in the last 3 days. Patient states that the pain has been constant, sharp and stabbing and that she has not been able to keep even th e medication that was prescribed for her. In the ED, patient is alert and oriented x3 and is not in any distress. Patient appears to be in pain. Patient was treated for pain in the ED and also given antiemetics and normal saline 1 L IV bolus x1. Lab test results were reviewed and are all nonactionable except for mildly elevated lipase levels of 86. Abdomen pelvis CT scan without contrast showed multiple right-sided pelvicalyceal calcified stones are noted, the largest measuring 1.1 cm in the interpolar region. 2 inferior pole pelvicalyceal stones are noted measuring approximately 1 cm and 9 mm. Additionally there is a minimally complex right renal cyst measures 3.5 cm and demonstrates rim calcification. No hydronephrosis. On reevaluation, patient's pain resolved with medications. Patient was discharged home on pain medications and antiemetics and was given a referral to the urologist Dr. Ryan for outpatient follow-up. Patient was advised to contact Dr. Ryan's office in the morning on 29 December 2019 to schedule a follow-up appointment. Patient was advised to return to ED immediately if symptoms get worse. - Differential Diagnosis Kidney stones; UTI; Diverticulitis; Appendicitis; Fibroids; Colitis Critical care attestation.: If time is entered above; I have spent that time in minutes in the direct care of this critically ill patient, excluding procedure time. ED Disposition Clinical Impression: Bilateral flank pain, Kidney stone on right side, Nausea and vomiting in adult patient Disposition: DC-01 TO HOME OR SELFCARE Is pt being admited?: No Does the pt Need Aspirin: No Condition: Stable Instructions: Abdominal Pain (ED), Renal Colic, [id number], Flank Pain, Adult, [id number], Nausea, Adult, [id number], Kidney Stones, [id number] Additional Instructions: All lab test results were reviewed and are all nonactionable. Abdomen pelvis CT scan without contrast showed right-sided kidney stones within the right kidney and no hydronephrosis. Therefore take pain medication as needed as well as antiemetics. Drink plenty of fluids and follow-up with your primary care physician in 5 to 7 days for reevaluation. Consider following up with a urologist Dr. Ryan for further evaluation of the kidney stones. Contact Dr. Ryan's office first thing in the morning on December 29, 2019 to schedule a follow-up appointment. Return to the ED immediately if symptoms get worse. Prescriptions: Ketorolac [Toradol] 10 mg PO Q8H PRN #20 tablet PRN Reason: Pain traMADoL [Ultram] 50 mg PO Q6HR PRN #12 tablet PRN Reason: Pain Ondansetron [Zofran Odt] 4 mg PO Q6HR PRN #20 tab.rapdis PRN Reason: Nausea Referrals: MOHAN ALXEANDER MD [Staff Physician] - 7-10 days () KIRAN RYAN MD [Staff Physician] - [facility] Forms: Work/School Release Form(ED) Time of Disposition: 22:59 Print Language: EQUATORIAL GUINEAN
[2019-12-29 03:38] VITALS: BP 156/80
== END 2019-12-28 23:10 | disposition home or self-care (01) ==
LOC: ED 16:50
DX: N20.0 Calculus of kidney (principal); R10.30 Lower abdominal pain, unspecified; R11.2 Nausea with vomiting, unspecified; I10 Essential (primary) hypertension; J45.909 Unspecified asthma, uncomplicated; Z98.890 Other specified postprocedural states; Z79.1 Long term (current) use of non-steroidal anti-inflammatories (NSAID); Z79.899 Other long term (current) drug therapy; Z88.1 Allergy status to other antibiotic agents
CPT/HCPCS: 36415; 74176; 80053; 81001; 83690; 85025; 96361; 96374; 96375; 99284; J1885; J2270; J2405; J7030

== ENCOUNTER 2021-04-09 22:17 | Emergency (ER) | payer MEDICAID ==
[2021-04-09] MEDS ORDERED: ASPIRIN 325 MG TAB PO ONE (22:35)
[2021-04-09] MEDS ORDERED: HYDROcodone/ACETAMINOPHEN 5-325 MG TAB PO ONE (22:48)
[2021-04-09] MEDS ORDERED: KETOROLAC 60 MG/2 ML INJ IM ONE ×2 (22:48→23:40)
--- NOTE | 2021-04-09 22:53 | Emergency Department Report ---
ED Chest Pain HPI - General Chief Complaint: Chest Pain Stated Complaint: CHEST AND BACK PAIN Time Seen by Provider: 04/09/21 22:39 Source: patient Mode of arrival: Ambulatory Limitations: No Limitations - History of Present Illness Initial Comments: 55-year-old bees female with a past medical history of previous TIA, hypertension, and asthma, and gout presents to the hospital complaining of intermittent chest pain for the last 3 days that worsened this evening. Patient reports that preceding pain she had several days of infectious symptoms includi ng cough which still persists. Patient complains of anterior mid chest pain and back pain that worsened today while at rest. Pain described as a heaviness that took her breath away. Pain is reproducible with movement and palpation. She denies calf tenderness, leg edema, recent travel, history of PE/DVT. Patient is unvaccinated for Covid however, she is tested for Covid every 2 weeks. She was last tested 2 days ago but currently awaiting the result Patient has a family history of CAD (mom had an VT at age 54) Last stress test was greater than 5 years ago Patient is a smoker Patient does not take aspirin daily Severity scale (0 -10): 10 - Related Data Previous Rx's Medication Instructions Recorded Last Taken Type Ibuprofen [Motrin 800 MG tab] 800 mg PO Q8HR PRN #20 tablet 05/24/16 Unknown Rx Albuterol Mdi (or & Nicu Only) 2 puff IH QID PRN #1 inhalation 03/25/17 Unknown Rx [ProAir HFA Inhaler] Cetirizine HCl [ZyrTEC 10mg cap] 10 mg PO QDAY #10 capsule 03/25/17 Unknown Rx Fluticasone [Flonase] 1 spray NS QDAY 10 Days #1 bottle 03/25/17 Unknown Rx Ibuprofen [Motrin 600 MG tab] 600 mg PO Q6H PRN #12 tablet 03/25/17 Unknown Rx Aspirin [Adult Aspirin] 81 mg PO DAILY #30 tablet. 01/05/19 Unknown Rx AtorvaSTATin [Lipitor] 40 mg PO QHS #30 tab 01/05/19 Unknown Rx Lisinopril/Hydrochlorothiazide 1 tab PO QDAY #30 tab 01/05/19 Unknown Rx [Zestoretic 20-25 mg] amLODIPine 1 tab PO DAILY #30 tablet 01/05/19 Unknown Rx Ketorolac [Toradol] 10 mg PO Q8H PRN #20 tablet 12/28/19 Unknown Rx Ondansetron [Zofran Odt] 4 mg PO Q6HR PRN #20 tab.rapdis 12/28/19 Unknown Rx traMADoL [Ultram] 50 mg PO Q6HR PRN #12 tablet 12/28/19 Unknown Rx Aspirin 325 mg PO QDAY #30 tablet 04/10/21 Unknown Rx Allergies Allergy/AdvReac Type Severity Reaction Status Date / Time amoxicillin Allergy Hives Verified 01/04/19 01:18 Heart Score - HEART Score History: Slightly suspicious EKG: Non-specific Age: 45-65 Risk factors: > 3 risk factors or hx of atherosclerotic disease Troponin: < normal limit HEART Score: 4 - EKG Read Time Time EKG Completed: 22:25 EKG Read Time: 22:29 ED Review of Systems ROS: Stated complaint: CHEST AND BACK PAIN Other details as noted in HPI Comment: All other systems reviewed and negative ED Past Medical Hx - Past Medical History Previous Medical History?: Yes Hx Hypertension: Yes Hx Congestive Heart Failure: No Hx Diabetes: No Hx Asthma: Yes Hx COPD: No Additional medical history: Morbid Obesity, Genital Herpes - Surgical History Past Surgical History?: Yes Additional Surgical History: , kidney, gall stones removed, - Social History Smoking Status: Current Every Day Smoker Substance Use Type: None - Medications Home Medications: Home Medications Medication Instructions Recorded Confirmed Last Taken Type Ibuprofen [Motrin 800 MG tab] 800 mg PO Q8HR PRN #20 tablet 05/24/16 Unknown Rx Albuterol Mdi (or & Nicu Only) 2 puff IH QID PRN #1 inhalation 03/25/17 Unknown Rx [ProAir HFA Inhaler] Cetirizine HCl [ZyrTEC 10mg cap] 10 mg PO QDAY #10 capsule 03/25/17 Unknown Rx Fluticasone [Flonase] 1 spray NS QDAY 10 Days #1 bottle 03/25/17 Unknown Rx Ibuprofen [Motrin 600 MG tab] 600 mg PO Q6H PRN #12 tablet 03/25/17 Unknown Rx Aspirin [Adult Aspirin] 81 mg PO DAILY #30 tablet. 01/05/19 Unknown Rx AtorvaSTATin [Lipitor] 40 mg PO QHS #30 tab 01/05/19 Unknown Rx Lisinopril/Hydrochlorothiazide 1 tab PO QDAY #30 tab 01/05/19 Unknown Rx [Zestoretic 20-25 mg] amLODIPine 1 tab PO DAILY #30 tablet 01/05/19 Unknown Rx Ketorolac [Toradol] 10 mg PO Q8H PRN #20 tablet 12/28/19 Unknown Rx Ondansetron [Zofran Odt] 4 mg PO Q6HR PRN #20 tab.rapdis 12/28/19 Unknown Rx traMADoL [Ultram] 50 mg PO Q6HR PRN #12 tablet 12/28/19 Unknown Rx Aspirin 325 mg PO QDAY #30 tablet 04/10/21 Unknown Rx ED Physical Exam - General Limitations: No Limitations - Other Other exam information: General: No acute distress Head: Atraumatic Eyes: normal appearance ENT: Moist mucous membranes Neck: Normal appearance, no midline tenderness Chest: Clear to auscultation bilaterally, reproducible sternal anterior chest wall tenderness, reproducible posterior thoracic tenderness to palpation CV: Regular rate and rhythm Abdomen: Soft, normal bowel sounds, nontender, nondistended, no rebound or guarding Back: Normal inspection Extremity: Normal inspection, full range of motion, no calf tenderness or leg edema, chronic left knee pain as per patient Neuro: Alert O x 3, no facial asymmetry, speech clear, no gross motor sensory deficit Psych: Appropriate behavior Skin: No rash ED Course Vital Signs 04/09/21 22:36 Temperature 98.7 F Pulse Rate 99 H Respiratory 20 Rate Blood Pressure 133/65 [Left] O2 Sat by Pulse 95 Oximetry STARR score - Starr Score Age > 65: (0) No Aspirin use within the Past 7 Days: (0) No 3 or more CAD Risk Factors: (1) Yes 2 or more Angina events in past 24 hrs: (0) No Known CAD with more than 50% Stenosis: (0) No Elevated Cardiac Markers: (0) No ST Deviation Greater than 0.5mm: (0) No STARR Score: 1 ED Medical Decision Making - Lab Data Result diagrams: 04/09/21 22:47 04/09/21 22:47 Lab Results 04/09/21 04/09/21 04/09/21 Range/Units 22:47 22:47 22:51 WBC 8.6 (4.5-11.0) K/mm3 RBC 3.55 L (3.65-5.03) M/mm3 Hgb 9.2 L (10.1-14.3) gm/dl Hct 27.9 L (30.3-42.9) % MCV 78 L (79-97) fl MCH 26 L (28-32) pg MCHC 33 (30-34) % RDW 15.0 (13.2-15.2) % Plt Count 337 (140-440) K/mm3 Lymph % (Auto) 28.3 (13.4-35.0) % Collier % (Auto) 6.2 (0.0-7.3) % Eos % (Auto) 1.2 (0.0-4.3) % Baso % (Auto) 0.6 (0.0-1.8) % Lymph # (Auto) 2.4 (1.2-5.4) K/mm3 Collier # (Auto) 0.5 (0.0-0.8) K/mm3 Eos # (Auto) 0.1 (0.0-0.4) K/mm3 Baso # (Auto) 0.0 (0.0-0.1) K/mm3 Seg Neutrophils % 63.7 (40.0-70.0) % Seg Neutrophils # 5.5 (1.8-7.7) K/mm3 PT 13.1 (12.2-14.9) Sec. INR 0.89 (0.87-1.13) D-Dimer 422.47 H (0-234) ng/mlDDU Sodium 143 (137-145) mmol/L Potassium 3.6 (3.6-5.0) mmol/L Chloride 104.7 (98-107) mmol/L Carbon Dioxide 24 (22-30) mmol/L Anion Gap 18 mmol/L BUN 15 (7-17) mg/dL Creatinine 1.2 (0.6-1.2) mg/dL Estimated GFR 56 ml/min BUN/Creatinine Ratio 13 % Glucose 113 H (65-100) mg/dL Calcium 9.5 (8.4-10.2) mg/dL Total Bilirubin < 0.20 (0.1-1.2) mg/dL AST 14 (5-40) units/L ALT 13 (7-56) units/L Alkaline Phosphatase 98 (35-129) units/L Troponin T < 0.010 (0.00-0.029) ng/mL Total Protein 7.2 (6.3-8.2) g/dL Albumin 4.0 (3.9-5) g/dL Albumin/Globulin Ratio 1.3 % 04/10/21 Range/Units 00:49 WBC (4.5-11.0) K/mm3 RBC (3.65-5.03) M/mm3 Hgb (10.1-14.3) gm/dl Hct (30.3-42.9) % MCV (79-97) fl MCH (28-32) pg MCHC (30-34) % RDW (13.2-15.2) % Plt Count (140-440) K/mm3 Lymph % (Auto) (13.4-35.0) % Collier % (Auto) (0.0-7.3) % Eos % (Auto) (0.0-4.3) % Baso % (Auto) (0.0-1.8) % Lymph # (Auto) (1.2-5.4) K/mm3 Collier # (Auto) (0.0-0.8) K/mm3 Eos # (Auto) (0.0-0.4) K/mm3 Baso # (Auto) (0.0-0.1) K/mm3 Seg Neutrophils % (40.0-70.0) % Seg Neutrophils # (1.8-7.7) K/mm3 PT (12.2-14.9) Sec. INR (0.87-1.13) D-Dimer (0-234) ng/mlDDU Sodium (137-145) mmol/L Potassium (3.6-5.0) mmol/L Chloride (98-107) mmol/L Carbon Dioxide (22-30) mmol/L Anion Gap mmol/L BUN (7-17) mg/dL Creatinine (0.6-1.2) mg/dL Estimated GFR ml/min BUN/Creatinine Ratio % Glucose (65-100) mg/dL Calcium (8.4-10.2) mg/dL Total Bilirubin (0.1-1.2) mg/dL AST (5-40) units/L ALT (7-56) units/L Alkaline Phosphatase (35-129) units/L Troponin T < 0.010 (0.00-0.029) ng/mL Total Protein (6.3-8.2) g/dL Albumin (3.9-5) g/dL Albumin/Globulin Ratio % - EKG Data -: EKG Interpreted by Me EKG shows normal: sinus rhythm, ST-T waves (Nonspecific diffuse ST abnormality) Rate: normal - EKG Data When compared to previous EKG there are: no significant change - Radiology Data Radiology results: report reviewed XR chest routine 2V INDICATION / CLINICAL INFORMATION: Chest pain. COMPARISON: 03/24/2017 FINDINGS: SUPPORT DEVICES: None. HEART /PULMONARY VASCULATURE: No significant abnormality. LUNGS / PLEURA: No significant pulmonary or pleural abnormality. No pneumothorax. ADDITIONAL FINDINGS: No significant additional findings. IMPRESSION: 1. No acute findings. CT angio chest INDICATION / CLINICAL INFORMATION: cp, mild ddimer elevation. TECHNIQUE: Axial CT images were obtained through the chest after injection of 100 cc of Omnipaque 350 IV contrast. 3 plane MIP and/or 3D reconstructions were produced. All CT scans at this location are performed using CT dose reduction for ALARA by means of automated exposure control. COMPARISON: Same day chest radiograph. CT of the abdomen and pelvis from 12/28/2019. FINDINGS: PULMONARY ARTERIES: No central or segmental pulmonary embolus. THORACIC AORTA: No significant abnormality. HEART: No significant abnormality. CORONARY ARTERY CALCIFICATION: No significant calcification. LYMPHADENOPATHY: No significant thoracic lymphadenopathy. LUNGS/PLEURA: No acute airspace disease. No pleural effusion or pneumothorax. OTHER FINDINGS: None. UPPER ABDOMEN: Stable appearance of the right kidney from 2019 with right nephrolithiasis and cystic change in the right kidney. No acute abnormality. SKELETAL SYSTEM: No acute osseous findings. IMPRESSION: No acute findings in the chest. No evidence of pulmonary embolism. - Medical Decision Making 55-year-old female presents to the hospital. Chest pain after several days of cough and URI symptoms. Clinically I suspect the patient has chest wall strain to start her chest wall is tender on examination. Patient does have no signs of ST elevation VT and troponin negative x2. D-dimer elevation noted with negative CT angiogram chest. Patient does have elevated heart score without recent stress test therefore patient will be admitted to the hospital for further cardiac work-up and evaluation. Hospitalist Dr. Rodriguez did go to speak to patient about admission however patient declined admission to the hospital because she needs to take care of her son. Patient will be discharged with outpatient follow-up. Patient will be referred to [facility] for outpatient stress test Critical Care Time: No Critical care attestation.: If time is entered above; I have spent that time in minutes in the direct care of this critically ill patient, excluding procedure time. ED Disposition Clinical Impression: Chest pain Disposition: 01 HOME / SELF CARE / HOMELESS Is pt being admited?: No Does the pt Need Aspirin: No Condition: Stable Instructions: Nonspecific Chest Pain, Adult, [id number] Additional Instructions: You have declined admission today for chest pain work-up. Take Motrin or Tylenol as needed for pain. Cardiac with cardiology as an outpatient for stress testing return if symptoms worsen as indicated by your discharge instructions. Prescriptions: Aspirin 325 mg PO QDAY #30 tablet Referrals: TERRANCE VEGA MD [Primary Care Provider] - 3-5 Days CLINTON RAMIREZ MD [Staff Physician] - 3-5 Days Time of Disposition: 03:41
--- NOTE | 2021-04-09 23:10 | XRay Report ---
XR chest routine 2V INDICATION / CLINICAL INFORMATION: Chest pain. COMPARISON: 03/24/2017 FINDINGS: SUPPORT DEVICES: None. HEART /PULMONARY VASCULATURE: No significant abnormality. LUNGS / PLEURA: No significant pulmonary or pleural abnormality. No pneumothorax. ADDITIONAL FINDINGS: No significant additional findings. IMPRESSION: 1. No acute findings. Signer Name: Rudi Hutson MD Signed: 04/09/2021 11:05 PM Workstation Name: [id number]
[2021-04-09 23:53] LABS: Basophils % (Auto) 0.6 % (0.0-1.8); Eosinophils # (Auto) 0.1 K/mm3 (0.0-0.4); Eosinophils % (Auto) 1.2 % (0.0-4.3); Hematocrit 27.9 % (30.3-42.9); Hemoglobin 9.2 gm/dl (10.1-14.3); Lymphocytes # (Auto) 2.4 K/mm3 (1.2-5.4); Lymphocytes % (Auto) 28.3 % (13.4-35.0); Mean Corpuscular HGB Conc 33 % (30-34); Mean Corpuscular Volume 78 fl (79-97); Monocytes # (Auto) 0.5 K/mm3 (0.0-0.8); Monocytes % (Auto) 6.2 % (0.0-7.3); Platelet Count 337 K/mm3 (140-440); Red Blood Count 3.55 M/mm3 (3.65-5.03)
[2021-04-10 00:05] LABS: Alanine Aminotransferase 13 units/L (7-56); BUN/Creatinine Ratio 13; Blood Urea Nitrogen 15 mg/dL (7-17); Calcium 9.5 mg/dL (8.4-10.2); Hemolysis Index 0
[2021-04-10 00:11] LABS: INR 0.89 (0.87-1.13)
--- NOTE | 2021-04-10 02:14 | Cat Scan Report ---
CT angio chest INDICATION / CLINICAL INFORMATION: cp, mild ddimer elevation. TECHNIQUE: Axial CT images were obtained through the chest after injection of 100 cc of Omnipaque 350 IV contrast. 3 plane MIP and/or 3D reconstructions were produced. All CT scans at this location are performed using CT dose reduction for ALARA by means of automated exposure control. COMPARISON: Same day chest radiograph. CT of the abdomen and pelvis from 12/28/2019. FINDINGS: PULMONARY ARTERIES: No central or segmental pulmonary embolus. THORACIC AORTA: No significant abnormality. HEART: No significant abnormality. CORONARY ARTERY CALCIFICATION: No significant calcification. LYMPHADENOPATHY: No significant thoracic lymphadenopathy. LUNGS/PLEURA: No acute airspace disease. No pleural effusion or pneumothorax. OTHER FINDINGS: None. UPPER ABDOMEN: Stable appearance of the right kidney from 2019 with right nephrolithiasis and cystic change in the right kidney. No acute abnormality. SKELETAL SYSTEM: No acute osseous findings. IMPRESSION: No acute findings in the chest. No evidence of pulmonary embolism. Signer Name: Rudi Hutson MD Signed: 04/10/2021 2:10 AM Workstation Name: [id number]
[2021-04-10 04:11] VITALS: BP 136/70
--- NOTE | 2021-04-12 17:24 | Electrocardiograph Report ---
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
== END 2021-04-10 04:18 | disposition home or self-care (01) ==
LOC: ED 22:17
DX: R07.9 Chest pain, unspecified (principal); F17.200 Nicotine dependence, unspecified, uncomplicated; J45.909 Unspecified asthma, uncomplicated; I10 Essential (primary) hypertension; Z88.0 Allergy status to penicillin
CPT/HCPCS: 36415; 71046; 71275; 80053; 84484; 85025; 85379; 85610; 93005; 93010; 99284; Q9967; J1885

== ENCOUNTER 2021-05-01 05:25 | Emergency (ER) | payer MEDICAID ==
[2021-05-01] MEDS ORDERED: ASPIRIN 325 MG TAB PO ONE (05:32)
[2021-05-01 06:01] LABS: Basophils % (Auto) 0.4 % (0.0-1.8); Eosinophils % (Auto) 0.2 % (0.0-4.3); Hematocrit 30.6 % (30.3-42.9); Hemoglobin 9.8 gm/dl (10.1-14.3); Lymphocytes # (Auto) 1.6 K/mm3 (1.2-5.4); Lymphocytes % (Auto) 31.4 % (13.4-35.0); Mean Corpuscular HGB Conc 32 % (30-34); Mean Corpuscular Volume 76 fl (79-97); Monocytes # (Auto) 0.6 K/mm3 (0.0-0.8); Monocytes % (Auto) 11.5 % (0.0-7.3); Platelet Count 289 K/mm3 (140-440); Red Blood Count 4.03 M/mm3 (3.65-5.03); Red Cell Distribution Width 15.4 % (13.2-15.2)
[2021-05-01] MEDS ORDERED: ALBUTEROL 8.5 GM MDI INHALATION IH ONE (06:03)
[2021-05-01] MEDS ORDERED: dexAMETHasone 20 MG/5 ML VIAL IV ONE (06:03)
--- NOTE | 2021-05-01 06:05 | Emergency Department Report ---
ED Shortness of Breath HPI - General Chief Complaint: Dyspnea/Respdistress Stated Complaint: SOB Time Seen by Provider: 05/01/21 05:55 Source: patient Mode of arrival: Wheelchair Limitations: No Limitations - History of Present Illness Initial Comments: Patient presented with progressive shortness of breath associated with some chest tightness. She was diagnosed with coronavirus 10 days ago. She has become more and more short of breath. She states that she just cannot get up and do anything without becoming dyspneic and winded. Patient has no cough currently. She did have a cough previously. Cough was nonproductive. She describes a heaviness and tightness across her chest. This is worse with inspiration. It does not change with exertion. She does state that she gets more short of breath with exertion. She has not had any worsening pedal edema. There is no history of recent travel or trauma. She denies any injury. She does report having history of lung problems and believes that the coronavirus has exacerbated that. She has been using her inhalers without symptomatic improvement. - Related Data Previous Rx's Medication Instructions Recorded Last Taken Type Ibuprofen [Motrin 800 MG tab] 800 mg PO Q8HR PRN #20 tablet 05/24/16 Unknown Rx Cetirizine HCl [ZyrTEC 10mg cap] 10 mg PO QDAY #10 capsule 03/25/17 Unknown Rx Fluticasone [Flonase] 1 spray NS QDAY 10 Days #1 bottle 03/25/17 Unknown Rx Ibuprofen [Motrin 600 MG tab] 600 mg PO Q6H PRN #12 tablet 03/25/17 Unknown Rx Aspirin [Adult Aspirin] 81 mg PO DAILY #30 tablet. 01/05/19 Unknown Rx AtorvaSTATin [Lipitor] 40 mg PO QHS #30 tab 01/05/19 Unknown Rx Lisinopril/Hydrochlorothiazide 1 tab PO QDAY #30 tab 01/05/19 Unknown Rx [Zestoretic 20-25 mg] amLODIPine 1 tab PO DAILY #30 tablet 01/05/19 Unknown Rx Ondansetron [Zofran Odt] 4 mg PO Q6HR PRN #20 tab.rapdis 12/28/19 Unknown Rx traMADoL [Ultram] 50 mg PO Q6HR PRN #12 tablet 12/28/19 Unknown Rx Aspirin 325 mg PO QDAY #30 tablet 04/10/21 Unknown Rx Albuterol Mdi (or & Nicu Only) 2 puff IH QID PRN #1 inhalation 05/01/21 Unknown Rx [ProAir HFA Inhaler] Dexamethasone [Decadron] 6 mg PO BID #10 tab 05/01/21 Unknown Rx Allergies Allergy/AdvReac Type Severity Reaction Status Date / Time amoxicillin Allergy Hives Verified 01/04/19 01:18 ED Review of Systems ROS: Stated complaint: SOB Other details as noted in HPI ED Past Medical Hx - Past Medical History Previous Medical History?: Yes Hx Hypertension: Yes Hx Congestive Heart Failure: No Hx Diabetes: No Hx Asthma: Yes Hx COPD: No Additional medical history: Morbid Obesity, Genital Herpes - Surgical History Past Surgical History?: Yes Additional Surgical History: , kidney, gall stones removed, - Social History Smoking Status: Current Every Day Smoker Substance Use Type: None - Medications Home Medications: Home Medications Medication Instructions Recorded Confirmed Last Taken Type Ibuprofen [Motrin 800 MG tab] 800 mg PO Q8HR PRN #20 tablet 05/24/16 Unknown Rx Cetirizine HCl [ZyrTEC 10mg cap] 10 mg PO QDAY #10 capsule 03/25/17 Unknown Rx Fluticasone [Flonase] 1 spray NS QDAY 10 Days #1 bottle 03/25/17 Unknown Rx Ibuprofen [Motrin 600 MG tab] 600 mg PO Q6H PRN #12 tablet 03/25/17 Unknown Rx Aspirin [Adult Aspirin] 81 mg PO DAILY #30 tablet. 01/05/19 Unknown Rx AtorvaSTATin [Lipitor] 40 mg PO QHS #30 tab 01/05/19 Unknown Rx Lisinopril/Hydrochlorothiazide 1 tab PO QDAY #30 tab 01/05/19 Unknown Rx [Zestoretic 20-25 mg] amLODIPine 1 tab PO DAILY #30 tablet 01/05/19 Unknown Rx Ondansetron [Zofran Odt] 4 mg PO Q6HR PRN #20 tab.rapdis 12/28/19 Unknown Rx traMADoL [Ultram] 50 mg PO Q6HR PRN #12 tablet 12/28/19 Unknown Rx Aspirin 325 mg PO QDAY #30 tablet 04/10/21 Unknown Rx Albuterol Mdi (or & Nicu Only) 2 puff IH QID PRN #1 inhalation 05/01/21 Unknown Rx [ProAir HFA Inhaler] Dexamethasone [Decadron] 6 mg PO BID #10 tab 05/01/21 Unknown Rx ED Physical Exam - General Limitations: No Limitations ED Course Vital Signs 05/01/21 05/01/21 05/01/21 05:28 05:50 06:46 Temperature 99.1 F Pulse Rate 92 H Pulse Rate [ 93 H Bilateral Throughout] Respiratory 26 H Rate Respiratory 23 Rate [Bilateral Throughout] Blood Pressure 190/124 [Right] O2 Sat by Pulse 98 Oximetry - Reevaluation(s) Reevaluation #1: 05/01/21 06:04 Labs have been ordered[address] CT angiogram has been ordered for PE as the patient is not considered a low risk for PE and a D-dimer would not be appropriate. Patient is obese, dyspneic, and has coronavirus. Reevaluation #2: 05/01/21 06:[address] angiogram is still pending. Labs have been reviewed. 05/01/21 07:28 Patient has improved aeration and symptomatically feels better after the breathing treatment. Reevaluation #3: 05/01/21 08:32 CT was noted. There is no PE. Patient does have findings consistent with a Cov id pneumonia. She was treated symptomatically and released. She is not hypoxic. ED Medical Decision Making - Lab Data Result diagrams: 05/01/21 05:43 05/01/21 05:43 Rhythm strip: Normal sinus rhythm without ectopy. Monitor observe 10 seconds. - EKG Data -: EKG Interpreted by Me - Radiology Data Radiology results: report reviewed - Medical Decision Making Patient presented with shortness of breath in the setting of coronavirus. She is not hypoxic. She would not require admission is simply for exertional dyspnea. She does not have EKG changes or elevation in troponin suggestive of ACS. She does not have pleural effusions or PE based on CAT scan. She does not have overt pulmonary edema suggestive of CHF. There is no evidence of aortic dissection based on her CT either. I believe that her dyspnea is likely Covid related, but she is not hypoxic and does not require admission. She does have infiltrative process that is consistent with a Covid pneumonia, which would be viral. Critical care attestation.: If time is entered above; I have spent that time in minutes in the direct care of this critically ill patient, excluding procedure time. ED Disposition Clinical Impression: Shortness of breath, COVID-19 virus infection Disposition: HOME / SELF CARE / HOMELESS Is pt being admited?: No Condition: Stable Instructions: Shortness of Breath, Adult, Efid-bi-Unce, COVID-19 Frequently Asked Questions, COVID-19: How to Protect Yourself and Others - [facility] [place] Additional Instructions: Drink plenty of water. Return for problems. Follow-up with your regular doctor for recheck. Prescriptions: Dexamethasone [Decadron] 6 mg PO BID #10 tab Albuterol Mdi (or & Nicu Only) [ProAir HFA Inhaler] 2 puff IH QID PRN #1 inhalation PRN Reason: COUGH/WHEEZING
[2021-05-01 06:19] LABS: Alanine Aminotransferase 16 units/L (7-56); Albumin 3.8 g/dL (3.9-5); BUN/Creatinine Ratio 15; Blood Urea Nitrogen 17 mg/dL (7-17); Calcium 8.4 mg/dL (8.4-10.2); Hemolysis Index 4
[2021-05-01] MEDS ORDERED: ALBUTEROL 2.5 MG/3 ML NEBU IH ONE (06:36)
[2021-05-01] MEDS ORDERED: IPRATROPIUM 0.02% NEBU 2.5 ML IH ONE (06:36)
--- NOTE | 2021-05-01 07:51 | Cat Scan Report ---
CTA CHEST WITH CONTRAST INDICATION : soa, covid, eval for pe. TECHNIQUE: Axial imaging performed through the chest, with contrast bolus timing set to maximize opa cification of the pulmonary arteries. Sagittal and coronal reformatted images. 3-plane MIP reformatte d images were obtained. All CT scans at this location are performed using CT dose reduction for ALAR A by means of automated exposure control. Omnipaque 350 75 mL of intravenous contrast administered. COMPARISON: 04/10/2021 FINDINGS: Bolus: Contrast bolus timing is adequate. PTE: No filling defect is present to suggest PTE. Mediastinum: Heart and great vessels appear normal. No pathologic mediastinal adenopathy. Lungs: Minimal subtle bilateral groundglass airspace opacities have developed since the previous exa m. No consolidation, pleural effusion or pneumothorax. No underlying parenchymal lung disease is appr eciated. Bones: Degenerative changes in the spine with nothing acute. Upper abdomen: Limited imaging of the upper abdomen shows nothing acute. IMPRESSION: No evidence for pulmonary embolus. Minimal bilateral airspace opacities have developed which could represent mild viral infection. No lo bar pneumonia, pleural effusion or pneumothorax. Signer Name: Ezra Quintana Jr, MD Signed: 05/01/2021 7:46 AM Workstation Name: [id number]
[2021-05-01 08:55] VITALS: BP 178/84
--- NOTE | 2021-05-02 10:00 | Electrocardiograph Report ---
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
== END 2021-05-01 08:55 | disposition home or self-care (01) ==
LOC: ED 05:25
DX: U07.1 COVID-19 (principal); R06.02 Shortness of breath; I10 Essential (primary) hypertension; J45.909 Unspecified asthma, uncomplicated; Z98.890 Other specified postprocedural states; F17.200 Nicotine dependence, unspecified, uncomplicated; Z91.09 Other allergy status, other than to drugs and biological substances
CPT/HCPCS: 36415; 71275; 80053; 84484; 85025; 93005; 94640; 96374; 99285; J1100; Q9967; 94644

== ENCOUNTER 2021-05-17 17:03 | Emergency (ER) | payer MEDICAID | END 2021-05-17 17:10 | disposition left against medical advice (07) | LOC: ED 17:03 | DX: M54.9 Dorsalgia, unspecified (principal); Z53.21 Procedure and treatment not carried out due to patient leaving prior to being seen by health care provider ==